=== PATIENT | female | born 1980 | race Caucasian/White ===

== ENCOUNTER → 2017-08-18 13:54 | Outpatient (CLI) | payer BC, SELFPAY ==
--- NOTE | 2017-08-18 13:57 | VDLE_ITS ---
Reason For Study: LEG PAIN - VARICOSE VEINS RIGHT LEFT CFV is compressible, spontaneous, phasic, CFV is compressible, spontaneous, phasic, competent and demonstrates normal competent, and demonstrates normal augmentation. augmentation. FV is compressible, spontaneous, phasic, FV is compressible, spontaneous, phasic, competent and demonstrates normal competent and demonstrates normal augmentation. augmentation. POP V is compressible, spontaneous, phasic, POP V is compressible, spontaneous, phasic, competent and demonstrates normal competent and demonstrates normal augmentation. augmentation. T/P Trunk is compressible. T/P Trunk is compressible. PTV is compressible. PTV is compressible. RT PerV is compressible. LT PerV is compressible. SFJ is INCOMPETENT with reflux greater SFJ is INCOMPETENT with reflux greater than .5 sec than .5 sec GSV is competent above knee GSV is INCOMPETENT with reflux greater GSV is INCOMPETENT below knee with reflux than .5 sec and diameter of .67 x .68 cm greater than .5 sec and diameter of .43 SSV is competent. x .46 cm ASV at SFJ is INCOMPETENT with reflux greater than .5 sec and diameter of .54 x .55 cm SSV is INCOMPETENT with reflux greater than .5 sec and diameter of .25 x .25 cm. Procedure Exam performed in department. Interpretation Summary 1. Bialteral no DVT. 2. Right SFJ to ASV reflux at 5.5mm 3. Right calf GSV reflux 4. Right LSV 2.5mm with relfux 5. Left SFJ to 6.8mm GSV reflux. Ordering Physician: Kg Shah Referring Physician: Kg Shah Performed By: Priti Egan RVT
== END ==
PROVIDERS: Visit Provider Surgery Vascular Surgery
DX: I83.813 Varicose veins of bilateral lower extremities with pain (principal)
CPT/HCPCS: 93970

== ENCOUNTER → 2019-12-29 14:01 | Outpatient (CLI) | payer BC, SELFPAY ==
[2018-05-28 12:07] VITALS: BMI 39.0
[2020-01-04 17:49] LABS: HPV APTIMA, High Risk Negative (Negative); HPV Reflexed? YES, CHARGE PATIENT
== END ==
PROVIDERS: PCP Family Medicine; Visit Provider Student in an Organized Health Care Education/Training Program
DX: Z12.4 Encounter for screening for malignant neoplasm of cervix (principal)
CPT/HCPCS: 87624; 88175; G0145

== ENCOUNTER → 2020-03-18 16:26 | Outpatient (CLI) | payer BC, SELFPAY ==
[2018-05-28 12:07] VITALS: BMI 39.0
== END ==
PROVIDERS: PCP Family Medicine; Visit Provider Family Medicine
DX: Z03.818 Encounter for observation for suspected exposure to other biological agents ruled out (principal)
CPT/HCPCS: 87635; U0003

== ENCOUNTER 2020-10-12 08:32 | Emergency (ER) | payer BC, SELFPAY ==
[2018-05-28 12:07] VITALS: BMI 39.0
[2020-10-12 08:34] VITALS: BP 148/78; PULSE 95; RESP 16; TEMP 36.2; O2SAT 100; BMI 36.4
--- NOTE | 2020-10-12 08:50 | US_ITS ---
STUDY: FIRST TRIMESTER OBSTETRICAL ULTRASOUND REASON FOR EXAM: Female, 40 years old, vaginal bleeding. LMP: 07/26/2020. TECHNIQUE: Transabdominal and Transvaginal TECHNICAL QUALITY: Adequate. PRIOR ULTRASOUND: None. FINDINGS: There is visualization of a single gestational sac in a normal intrauterine position. The mean sac diameter (MSD) measures 4.7 cm, indicating an estimated gestational age (EGA) of 10 weeks, 1 days. The gestational sac shape is within normal limits. There is no demonstrated yolk sac. The placenta appears to be forming anteriorly and completely covering the internal os. There is visualization of a live embryo. The crown-rump length (CRL) measures 4.3 cm, indicating an estimated gestational age (EGA) of 10 weeks, 6 days. There is demonstrated cardiac activity with a heart rate of 162 bpm. The estimated gestation age (EGA) by LMP is 11 weeks, 1 days. The estimated date of delivery (ANEUDY) by LMP is 05/02/2021. The estimated gestation age (EGA) by US is 10 weeks, 6 days. The estimated date of delivery (ANEUDY) by US is 05/04/2021. The uterus measures 18.4 x 7 x 8.9 cm. There is no demonstrated uterine fibroid. The cervix is closed. Both ovaries are not visualized. There is no fluid in the cul de sac. US/Init OB < 14Wks US IMPRESSION: 1. Single live intrauterine fetus with an estimated gestational age of 10 weeks and 6 days. 2. The placenta appears to be forming anteriorly with complete previa. Electronically Signed: David Anthony MD at 10:16 EDT Tel , Service support ,
--- NOTE | 2020-10-12 08:53 | ED.VIS.FEGU ---
HPI HPI - Female History of Present Illness Chief Complaint: Vag Bld, Preg Informant: patient Narrative Narrative: 40-year-old female presenting with vaginal bleeding in . She is 11 weeks . She is G3, P2. She states she had spotting when she was 7 weeks which resolved. She then began having heavier bleeding today with clots. She has lower abdominal cramping. Denies other complaints. PFSH PFSH Medical History Chronic neck and back pain Shortness of breath Home Medications albuterol sulfate 2 puff INHALATION Q4H PRN PRN 10/12/14 [History Last Taken 10/12/14] docusate sodium 100 mg PO BID PRN PRN #60 cap 10/12/14 [Rx Last Taken Unknown] vit,[id number] 1 tab PO DAILY 10/12/14 [History Last Taken 10/12/14] Allergy/AdvReac Type Severity Reaction Status Date / Time azithromycin AdvReac Upset Verified 10/12/20 08:33 Stomach Surgical History History of delivery Social History Smoking Status: Never smoker ROS ROS ED Constitutional Constitutional ED: Denies fever(s) Eyes Eyes: Denies change in vision ENT ENT ED: Denies rhinorrhea or sore throat Cardiovascular Cardiovascular: Denies chest pain or palpitations Respiratory/Chest Respiratory/Chest: Denies cough or dyspnea Gastrointestinal Gastrointestinal: Reports abdominal pain; Denies diarrhea, nausea or vomiting Genitourinary Genitourinary ED: Reports vaginal bleeding; Denies dysuria Musculoskeletal Musculoskeletal: Denies myalgias Integumentary Denies rash Neurologic Neurologic: Denies headache(s) EXAM Physical Exam Const Vital Signs: 10/12/20 08:34 10/12/20 12:04 Temperature 97.2 F L Temperature Source Temporal Pulse Rate 95 94 Respiratory Rate 16 16 Blood Pressure 148/78 H 132/77 H Blood Pressure Mean 101 95 Pulse Ox 100 100 Oxygen Delivery Method Room Air Room Air Positive well nourished and well developed General Appearance ED: well developed HEENT Reports normocephalic and head/scalp atraumatic Eyes PERRL and EOMs intact bilaterally Neck supple General: Negative for tenderness Chest Wall inspection of chest normal Resp normal respiratory effort and clear to auscultation bilaterally Cardio regular rate and regular rhythm GI non-distended Palpation: soft and tender suprapubic; Negative for guarding or rebound tenderness present no CVA tenderness Speculum Exam - Vagina: vaginal bleeding; Negative for tissue present in vagina Speculum Exam - Cervix: cervical os closed Extremity normal to inspection Neuro oriented x3 Sensorium / Orientation: alert Psych mental status grossly normal MDM MDM MDM Narrative Medical decision making narrative: Patient is given morphine, Zofran, IV fluids. On pelvic exam blood is cleared with cotton tip swab. She has no active bleeding once blood is cleared. Blood type is B+. hCG quant 04027. Hemoglobin is 12.8. Pelvic ultrasound shows single live IUP with gestational age 10 weeks [address] Titus. Patient is advised pelvic rest. Advised to follow-up in the office. Advised return to ED for worsening complaints. Lab Data Labs: Laboratory Results - last 24 hr 10/12/20 10/12/20 10/12/20 08:25 09:10 09:10 WBC 9.2 RBC 4.70 Hgb 12.8 Hct 39.2 MCV 83.4 MCH 27.2 MCHC 32.7 RDW Std Deviation 39.8 RDW Coeff of Ryan 12.9 Plt Count 274 MPV 10.1 Immature Gran % (Auto) 0.300 Neut % (Auto) 70.9 H Lymph % (Auto) 20.8 [place] % (Auto) 5.4 Eos % (Auto) 2.2 Baso % (Auto) 0.4 Absolute Neuts (auto) 6.5 Absolute Lymphs (auto) 1.91 Nucleated RBC % 0 HCG, Quant 67656 H Blood Type Cancelled A1 Antigen Typing Cancelled Rho(D) Type Cancelled Radiography Diagnostic Testing: Radiology Impression Obstetrics Ultrasound 10/12/20 08:50 IMPRESSION: 1. Single live intrauterine fetus with an estimated gestational age of 10 weeks and 6 days. 2. The placenta appears to be forming anteriorly with complete previa. Electronically Signed: David Anthony MD at 10:16 EDT Tel , Service support , Discharge Plan Triage Chief Complaint: Vag Bld, Preg ED Provider: Lana Heck Dx/Rx/DC Orders Clinical Impression: Threatened miscarriage Instructions: ED Possible Miscarriage ... Prescriptions: No Action albuterol sulfate 1 INHALER inhaler 2 puff Inhalation Q4H PRN PRN (Reason: Cold Symptons) RF: 0 vit,[id number] 1 TABLET tablet 1 tab PO DAILY RF: 0 docusate sodium 100 MG capsule 100 mg PO BID PRN PRN (Reason: Constipation) Qty: 60 RF: 1 Primary Care Provider: Uzma Gray Referrals: Neena Coley MD [STAFF PHYSICIAN] - Uzma Gray MD [Primary Care Provider] - Disposition Disposition: Home, self care
[2020-10-12 08:58] LABS: Absolute Lymphocyte Count 1.91 X10^3/uL (0.83-4.51); Absolute Neutrophil Count 6.5 X10^3/uL (2.0-7.7); Basophil# 0.04 X10^3/uL; Basophil% 0.4 % (0-1); Eosinophils% 2.2 % (0-5); Hematocrit 39.2 % (37-47); Hemoglobin 12.8 g/dL (12.0-15.0); Lymphocyte # 1.91 X10^3/ul (0.83-4.51); Lymphocyte % 20.8 % (19-41); Mean Corp Hgb Conc 32.7 g/dL (32-36); Mean Corpuscular Hgb 27.2 pg (27.0-32.0); Mean Corpuscular Volume 83.4 fL (81-99); Mean Platelet Vol. 10.1 fl (6.2-12.0); Monocyte% 5.4 % (0-10); NRBC Flagged by Analyzer 0 % (0-5); Neutrophil % 70.9 % (47-70); Platelet Count 274 K/mm3 (150-450); RBC Distribution Width CV 12.9 % (11.6-14.6); RBC Distribution Width SD 39.8 fl (35.1-43.9); White Blood Count 9.2 K/mm3 (4.4-11.0)
[2020-10-12] MEDS: 0.9% Normal Saline 1,000 ML 1000 ML IV (09:08)
[2020-10-12] MEDS: Morphine 4 MG/ML Syringe IV (09:08)
[2020-10-12] MEDS: Ondansetron 4 MG/2 ML Vial IV (09:08)
[2020-10-12 10:24] LABS: hCG Titer Quant., Serum 35231 mIU/mL (1-3)
[2020-10-12 12:04] VITALS: BP 132/77; PULSE 94; RESP 16; O2SAT 100
[2020-10-12 13:03] VITALS: BP 125/67; PULSE 83; RESP 16; O2SAT 100
== END 2020-10-12 13:44 | disposition home or self-care (01) ==
PROVIDERS: Emergency Provider Emergency Medicine; PCP Family Medicine
DX: O20.0 Threatened abortion (principal); Z3A.11 11 weeks gestation of pregnancy
CPT/HCPCS: 76801; 84702; 85025; 86900; 86901; 96361; 96374; 96375; 99285; A4216; J2405

== ENCOUNTER → 2020-11-20 14:45 | Outpatient (CLI) | payer BC, SELFPAY | PROVIDERS: PCP Family Medicine; Visit Provider Student in an Organized Health Care Education/Training Program | DX: R30.0 Dysuria (principal) | CPT/HCPCS: 87086; 87088 ==

== ENCOUNTER 2020-12-18 10:45 | Inpatient (IN) | payer BC, SELFPAY ==
[2020-12-18] VITALS (11 sets, daily range): BP systolic 121–150; BP diastolic 62–92; PULSE 97–133; TEMP 36.1–36.8; O2SAT 98; BMI 35.7
[2020-12-18] MEDS: 0.9% Saline Lock 10 ML Syringe IV (11:10)
--- NOTE | 2020-12-18 11:29 | NURSING ---
Office weight used
[2020-12-18 11:36] LABS: Absolute Lymphocyte Count 1.61 X10^3/uL (0.83-4.51); Absolute Neutrophil Count 11.5 X10^3/uL (2.0-7.7); Basophil# 0.04 X10^3/uL; Basophil% 0.3 % (0-1); Eosinophil# 0.08 X10^3/uL; Eosinophils% 0.6 % (0-5); Hemoglobin 11.6 g/dL (12.0-15.0); Lymphocyte # 1.61 X10^3/ul (0.83-4.51); Lymphocyte % 11.5 % (19-41); Mean Corp Hgb Conc 32.2 g/dL (32-36); Mean Corpuscular Hgb 26.9 pg (27.0-32.0); Mean Corpuscular Volume 83.3 fL (81-99); Mean Platelet Vol. 10.2 fl (6.2-12.0); Monocyte# 0.72 X10^3/uL; Monocyte% 5.2 % (0-10); NRBC Flagged by Analyzer 0 % (0-5); Neutrophil # 11.45 X10^3/uL (2.7-7.7); Neutrophil % 81.9 % (47-70); Platelet Count 253 K/mm3 (150-450); RBC Distribution Width CV 13.9 % (11.6-14.6); RBC Distribution Width SD 42.5 fl (35.1-43.9); Red Blood Count 4.32 M/mm3 (4.2-5.4)
--- NOTE | 2020-12-18 14:49 | HP.PCM.OB_ITS ---
History and Physical Date of Admission: 12/18/20 Chief complaint: Leakage of fluid History of present illness: 40-year-old G3, P2 at 20 weeks and 5 days with ANEUDY 05/02/2021 by LMP arrived to office with leakage of clear/blood tinged fluid starting this morning. Denies headache, visual changes, chest pain, shortness of breath, nausea vomiting, right upper quadrant pain. Obstetric history: G1: 41-week 09/03/2012 female G2: 39-week 10/12/2014 male G3: Current Past medical history: Anxiety, asthma Medications: vitamin, ProAir Past surgical history: x2, wisdom teeth extraction, left leg ablation Allergies: No known drug allergies Social history: Denies smoking, alcohol use, drug use Family history: Denies his DVT or PE Review of systems: Besides above pertinent positives a full review of systems performed found to be negative Physical exam: Vitals: Blood pressure 138/74 pulse 97 General: Tearful, otherwise well-appearing HEENT: Normocephalic atraumatic no cervical of adenopathy Cardiac/respiratory: No use of accessory muscles, nonlabored breathing Abdomen: Soft, nontender, gravid Pelvic exam: Grossly ruptured clear fluid. Positive nitrazine, positive ferning. Cervix 1 cm dilated Extremities: No peripheral edema normal peripheral pulses Psych: Normal affect normal demeanor nonpressured speech Labs: White blood cell count 14, hemoglobin 9.6, hematocrit 36%, platelets 253. Blood type B+ antibody negative Ultrasound in office: heart tones 156, anhydramnios. Head circumference AGA, limited views otherwise with anhydramnios Assessment plan: 40-year-old G3, P2 at 20 weeks and 5 days arrives with previable premature rupture membranes. Educated patient on findings of previable premature rupture of membranes(PPPROM). Educated patient on positive heart tone and risks of delivery, demise, chorioamnionitis. Educated patient on previability and gestational ages considered viable. Discussed with [facility]. Will admit here at [facility] [place] overnight for observation. If no delivery in 24 to 48 hours patient stable will schedule with [facility] on an outpatient setting in the hopes to be scheduled for inpatient management at 22 to 23 weeks gestation. Discussed vaginal delivery and possibility retained products of conception. Patient very tearful, but states understanding, all questions answered.
[2020-12-18] MEDS: Acetaminophen 500 MG Tablet 1000 MG PO ×2 (15:07→21:50)
[2020-12-19] VITALS (26 sets, daily range): BP systolic 118–140; BP diastolic 58–76; PULSE 106–135; TEMP 36.9–37.9; O2SAT 95–98
[2020-12-19] MEDS: Ondansetron 4 MG/2 ML Vial IV ×3 (04:13→18:29)
--- NOTE | 2020-12-19 04:25 | PCM.PN.OB ---
Subjective Subjective Called by RN as unable to obtain FHT. Patient reports feeling generally unwell. Her headache persists. Denies nausea or vomiting. She feels cramping also and had increase in discharge when she was up to the bathroom. Denies fever or chills. Objective Data Objective Data Vital Signs: Vital Signs Temp Pulse BP Pulse Ox 99.2 F H 125 H 140/76 H 97 12/19/20 03:58 12/19/20 04:11 12/19/20 03:55 12/19/20 04:11 Weight: 109.769 kg Body Mass Index (BMI) 35.7 Lab / Micro Data Result Diagrams: 12/18/20 11:10 Labs: Laboratory Results - last 24 hr 12/18/20 11:10: WBC 14.0 H, RBC 4.32, Hgb 11.6 L, Hct 36.0 L, MCV 83.3, MCH 26.9 L, MCHC 32.2, RDW Std Deviation 42.5, RDW Coeff of Ryan 13.9, Plt Count 253, MPV 10.2, Immature Gran % (Auto) 0.500, Neut % (Auto) 81.9 H, Lymph % (Auto) 11.5 L, [place] % (Auto) 5.2, Eos % (Auto) 0.6, Baso % (Auto) 0.3, Absolute Neuts (auto) 11.5 H, Absolute Lymphs (auto) 1.61, Nucleated RBC % 0 12/18/20 11:10: Blood Type B POSITIVE, Antibody Screen NEGATIVE Physical Exam Const alert, oriented x3 and no apparent distress Orientation / Consciousness: awake, oriented to person and oriented to place Resp normal respiratory effort and normal air movement Cardio regular rhythm Rate: tachycardic GI normal to inspection, nondistended, normoactive bowel sounds, soft to palpation and non-distended GI Narrative: mild uterine tenderness NST FHR Rate Baby A Baseline: 160 bpm Variability:: Moderate Assessment & Plan (1) premature rupture of membranes (PPROM) with unknown onset of labor: PLAN: Previable FHR 160 bpm by US Maternal tachycardia present and mild though increasing painfulness and increasing temperature curve without fever Reviewed my concern for infection and/or labor developing with patient Will send CBC with diff Continue to monitor (2) 20 weeks gestation of :
[2020-12-19 04:32] LABS: Absolute Lymphocyte Count 1.06 X10^3/uL (0.83-4.51); Absolute Neutrophil Count 15.4 X10^3/uL (2.0-7.7); Basophil# 0.04 X10^3/uL; Basophil% 0.2 % (0-1); Eosinophil# 0.05 X10^3/uL; Eosinophils% 0.3 % (0-5); Hematocrit 34.2 % (37-47); Lymphocyte # 1.06 X10^3/ul (0.83-4.51); Mean Corp Hgb Conc 32.2 g/dL (32-36); Mean Platelet Vol. 10.1 fl (6.2-12.0); Monocyte# 1.09 X10^3/uL; Monocyte% 6.2 % (0-10); NRBC Flagged by Analyzer 0 % (0-5); Neutrophil # 15.35 X10^3/uL (2.7-7.7); Neutrophil % 86.6 % (47-70); Platelet Count 224 K/mm3 (150-450); RBC Distribution Width SD 43.1 fl (35.1-43.9); Red Blood Count 4.07 M/mm3 (4.2-5.4); White Blood Count 17.7 K/mm3 (4.4-11.0)
[2020-12-19] MEDS: Morphine 4 MG/ML Syringe IV ×4 (04:48→18:19)
--- NOTE | 2020-12-19 08:15 | PCM.PN.OB ---
Subjective Subjective Patient with mild cramping around 2:00 in the morning overnight. Borderline temperatures but no true fever. Patient now feeling some cramping but much improved. Objective Data Objective Data Vital Signs: Vital Signs Temp Pulse BP Pulse Ox 98.4 F 110 H 119/62 96 12/19/20 07:28 12/19/20 07:25 12/19/20 07:25 12/19/20 07:28 Weight: 242 lb Body Mass Index (BMI) 35.7 Lab / Micro Data Result Diagrams: 12/19/20 04:20 Labs: Laboratory Results - last 24 hr 12/18/20 11:10: WBC 14.0 H, RBC 4.32, Hgb 11.6 L, Hct 36.0 L, MCV 83.3, MCH 26.9 L, MCHC 32.2, RDW Std Deviation 42.5, RDW Coeff of Ryan 13.9, Plt Count 253, MPV 10.2, Immature Gran % (Auto) 0.500, Neut % (Auto) 81.9 H, Lymph % (Auto) 11.5 L, [place] % (Auto) 5.2, Eos % (Auto) 0.6, Baso % (Auto) 0.3, Absolute Neuts (auto) 11.5 H, Absolute Lymphs (auto) 1.61, Nucleated RBC % 0 12/18/20 11:10: Blood Type B POSITIVE, Antibody Screen NEGATIVE 12/19/20 04:20: WBC 17.7 H, RBC 4.07 L, Hgb 11.0 L, Hct 34.2 L, MCV 84.0, MCH 27.0, MCHC 32.2, RDW Std Deviation 43.1, RDW Coeff of Ryan 14.0, Plt Count 224, MPV 10.1, Immature Gran % (Auto) 0.700, Neut % (Auto) 86.6 H, Lymph % (Auto) 6.0 L, [place] % (Auto) 6.2, Eos % (Auto) 0.3, Baso % (Auto) 0.2, Absolute Neuts (auto) 15.4 H, Absolute Lymphs (auto) 1.06, Nucleated RBC % 0 Physical Exam Const alert, oriented x3, no apparent distress, average body habitus, healthy appearing and well nourished HEENT normocephalic and moist oral mucous membranes Head and Scalp: atraumatic Neck full ROM Resp normal respiratory effort, no retractions and no use of accessory muscles GI normal to inspection, nondistended, normoactive bowel sounds Extremity normal to inspection, full ROM and no clubbing, cyanosis or edema Psych mental status grossly normal, affect normal, speech normal and activity/motor behavior normal Assessment & Plan (1) 20 weeks gestation of : PLAN: Hospital day 2 with previable premature rupture membranes at 20 weeks. Overnight borderline temperatures, no true fever and no true diagnosis of chorioamnionitis. We will continue to monitor, discussed chorioamnionitis with the patient including its treatment and need for delivery at that time. Discussed delivery medications and process. Patient very appreciative, feels much improved now. Will continue expectant management at this time based on these results.
[2020-12-19] MEDS: 0.9% Saline Lock 10 ML Syringe IV ×5 (10:49→18:19)
--- NOTE | 2020-12-19 21:02 | PN_ITS ---
Progress Note Subjective: Patient with malaise, crampiness that is mild to moderate. Overall states tired of current state but doing well. Anxiety low Physical exam: Vital signs: Blood pressure 133/69 pulse 116 temp 99.7 General: Lethargic HEENT: Normocephalic atraumatic Cardiac/respiratory: Nonlabored breathing, no use of accessory muscles Abdomen: Soft, nontender, obese Pelvic exam: Sterile speculum exam revealed small amount of clearish brown discharge. Cervix 1 cm 90% with sterile gloves. Uterus nontender, cervix nontender. No purulent discharge Extremities: No peripheral edema normal peripheral pulses Psych: Overall normal affect normal demeanor nonpressured speech Assessment plan: Patient seen and examined, overall just feels tired. No major changes throughout the day with cramping that comes and goes some moments worse than others. And mild malaise. Overall exam showed no purulent discharge and a nontender uterus. Cervical exam with moderate effacement changes based on initial office evaluation but no changes in cervical dilation. Educated patient on findings. Patient wishes to proceed with expectant management, discussed co ncerns for infection, along with discussions of babies positive blood rising heart tones. Patient states understanding and wishes for continued expectant management. Will repeat CBC and lactic acid now. Educated patient of possibility of discussion with ethics committee if no major overnight changes, patient interested in this discussion and would like to evaluate that in the morning. Overall comfort care and expectant management, at this time no true temperatures.
[2020-12-19 21:40] LABS: Absolute Lymphocyte Count 1.21 X10^3/uL (0.83-4.51); Absolute Neutrophil Count 16.3 X10^3/uL (2.0-7.7); Basophil# 0.06 X10^3/uL; Basophil% 0.3 % (0-1); Eosinophil# 0.03 X10^3/uL; Eosinophils% 0.2 % (0-5); Hematocrit 32.1 % (37-47); Hemoglobin 10.4 g/dL (12.0-15.0); Lymphocyte # 1.21 X10^3/ul (0.83-4.51); Lymphocyte % 6.3 % (19-41); Mean Corp Hgb Conc 32.4 g/dL (32-36); Mean Corpuscular Hgb 27.1 pg (27.0-32.0); Mean Corpuscular Volume 83.6 fL (81-99); Mean Platelet Vol. 10.1 fl (6.2-12.0); Monocyte# 1.25 X10^3/uL; Monocyte% 6.6 % (0-10); NRBC Flagged by Analyzer 0 % (0-5); Neutrophil # 16.31 X10^3/uL (2.7-7.7); Neutrophil % 85.6 % (47-70); Platelet Count 226 K/mm3 (150-450); RBC Distribution Width CV 14.1 % (11.6-14.6); RBC Distribution Width SD 42.8 fl (35.1-43.9); Red Blood Count 3.84 M/mm3 (4.2-5.4); White Blood Count 19.1 K/mm3 (4.4-11.0)
[2020-12-19 22:04] LABS: Lactic Acid 0.9 mmol/L (0.4-1.9)
[2020-12-19] MEDS: Famotidine 20 MG Tablet 40 MG PO (22:27)
[2020-12-20] VITALS (10 sets, daily range): BP systolic 114–137; BP diastolic 62–75; PULSE 98–116; TEMP 36.6–38.1; O2SAT 97–100
[2020-12-20] MEDS: 0.9% Saline Lock 10 ML Syringe IV ×6 (00:44→17:50)
[2020-12-20] MEDS: Morphine 4 MG/ML Syringe IV ×4 (00:44→16:18)
[2020-12-20] MEDS: Ondansetron 4 MG/2 ML Vial IV ×2 (08:07→17:50)
--- NOTE | 2020-12-20 08:58 | PN.OBGYN_ITS ---
Subjective Subjective Patient feeling much improved Overnight. Decreased malaise. Does have mild cramping. But feels much better than she did yesterday. Objective Data Objective Data Vital Signs: Vital Signs Temp Pulse BP Pulse Ox 98.1 F 103 H 131/75 H 97 12/20/20 06:41 12/20/20 06:41 12/20/20 06:41 12/20/20 06:41 Weight: 242 lb Body Mass Index (BMI) 35.7 Lab / Micro Data Result Diagrams: 12/19/20 20:13 Labs: Laboratory Results - last 24 hr 12/19/20 20:13: WBC 19.1 H, RBC 3.84 L, Hgb 10.4 L, Hct 32.1 L, MCV 83.6, MCH 27.1, MCHC 32.4, RDW Std Deviation 42.8, RDW Coeff of Ryan 14.1, Plt Count 226, MPV 10.1, Immature Gran % (Auto) 1.000 H, Neut % (Auto) 85.6 H, Lymph % (Auto) 6.3 L, [place] % (Auto) 6.6, Eos % (Auto) 0.2, Baso % (Auto) 0.3, Absolute Neuts (auto) 16.3 H, Absolute Lymphs (auto) 1.21, Nucleated RBC % 0 12/19/20 20:13: Lactic Acid 0.9 Physical Exam Const alert, oriented x3, no apparent distress, average body habitus, healthy appearing and well nourished HEENT normocephalic and moist oral mucous membranes Head and Scalp: atraumatic Face and Sinus: normal facial exam Eyes PERRL Neck full ROM Resp normal respiratory effort, no retractions and no use of accessory muscles GI normal to inspection, nondistended, normoactive bowel sounds Extremity normal to inspection, full ROM and no clubbing, cyanosis or edema Psych mental status grossly normal, affect normal, speech normal and activity/motor behavior normal Assessment & Plan (1) 20 weeks gestation of : PLAN: Patient seen and examined. Now 21 weeks gestation. Feeling much improved compared to last evening. Now malaise has resolved. Vital stabilizing. Does have mild to moderate cramping at times. Educated patient on findings still with heart tones and much improved. Discussed case with [facility], supports continued expectant management and for scheduled inpatient admission at 0930 12/27/20 [facility] at 22 weeks to discuss latency antibiotics and [place]. Address for that admit [address] second- floor triage for direct admit. Educated patient on recommendations, performed huddle with nursing management, nursing, pediatrics for plan. Patient at this time does not feel mentally and physically comfortable to discharge home, will continue to monitor expectantly. With plan for discharge to [facility] next week if possible. Patient understands long-term soliloquy of baby including long-term neurologic deficits, survival, long-term NICU stay.
--- NOTE | 2020-12-20 19:00 | PN.OBGYN_ITS ---
Subjective Subjective Reports intermittent cramping and headache off and on. She passed some foul smelling fluid with discharge, but denies yellow or green drainage or drainage looking like pus. She denies fever. She is uncertain if she has chills and reports she is usually hot. Denies vaginal bleeding. She is anxious and trying to take things one hour at a time. Has questions about her , how long she will be here, concerns about discharge, and if she should have antibiotics. She feels her cramping pain is improved with Morphine, which also helps to relax her so she can sleep and not worry as much. Objective Data Objective Data Vital Signs: Vital Signs Temp Pulse BP Pulse Ox 98.7 F 107 H 137/70 H 99 12/20/20 17:52 12/20/20 17:52 12/20/20 17:51 12/20/20 17:52 Weight: 109.769 kg Body Mass Index (BMI) 35.7 Lab / Micro Data Result Diagrams: 12/19/20 20:13 Labs: Laboratory Results - last 24 hr 12/19/20 20:13: WBC 19.1 H, RBC 3.84 L, Hgb 10.4 L, Hct 32.1 L, MCV 83.6, MCH 27.1, MCHC 32.4, RDW Std Deviation 42.8, RDW Coeff of Ryan 14.1, Plt Count 226, MPV 10.1, Immature Gran % (Auto) 1.000 H, Neut % (Auto) 85.6 H, Lymph % (Auto) 6.3 L, [place] % (Auto) 6.6, Eos % (Auto) 0.2, Baso % (Auto) 0.3, Absolute Neuts (auto) 16.3 H, Absolute Lymphs (auto) 1.21, Nucleated RBC % 0 12/19/20 20:13: Lactic Acid 0.9 Physical Exam Const alert, oriented x3 and no apparent distress General Appearance: cooperative and comfortable HEENT normocephalic Resp normal respiratory effort and normal air movement Cardio regular rate, regular rhythm, S1 normal heart sound and S2 normal heart sound GI soft to palpation, non-tender and non-distended Inspection: gravid Narrative: Fundus soft, nontender Extremity normal to inspection Neuro oriented x3 Assessment & Plan (1) premature rupture of membranes (PPROM) with unknown onset of labor: PLAN: No clear evidence of infection and pt remains afebrile despite occasional foul smelling discharge (as per pt, nursing report) and leukocytosis Had long discussion regarding diagnosis, pt risk factors to answer her ques tions. Reviewed indications for antibiotics and limited evidence for use of antibiotics this early in gestation. Pt understands use of antibiotics at this time considered experimental. Discussed antibiotic r/b - following discussion, pt opts to defer antibiotics at this time. Reviewed si/sx infection and discharge criteria. At this time, will continue in patient observation (2) 20 weeks gestation of :
[2020-12-20] MEDS: Famotidine 20 MG Tablet 40 MG PO (22:06)
[2020-12-20] MEDS: Acetaminophen 325 MG Tablet PO (22:06)
[2020-12-20] MEDS: Zolpidem Tartrate 5 MG Tablet PO (22:06)
[2020-12-20] MEDS: Enoxaparin 40 MG/0.4 ML Syringe SC (22:06)
--- NOTE | 2020-12-20 22:33 | MDS.RN ---
Pt talkative, states feels warm, has a headache and overall achyness. Assisted pt with changing underpad while in bed, pt did not wish to get up to the BR at this time. Scant amount of light rubra, brown foul smelling discharge noted on pad.
--- NOTE | 2020-12-20 22:48 | NURSING ---
notified of elevated temp of 100.6. States will be over to assess pt.
--- NOTE | 2020-12-20 23:22 | PCM.PN.OB ---
Subjective Subjective Pt reports fever. Thinks she may have had one earlier today followed by sweating and broke. She reports occasional cramping. Continues with brown tinged vaginal discharge with odor. Objective Data Objective Data Vital Signs: Vital Signs Temp Pulse BP Pulse Ox 100.6 F H 104 H 123/67 H 97 12/20/20 22:01 12/20/20 22:11 12/20/20 22:01 12/20/20 22:11 Weight: 109.769 kg Body Mass Index (BMI) 35.7 Lab / Micro Data Result Diagrams: 12/20/20 23:15 Physical Exam Const alert and oriented x3 Cardio regular rhythm Cardio Narrative: tachycardia - 110 bpm Narrative: Fundus soft, nontender NST FHR Rate Baby A Baseline: positive Assessment & Plan (1) Maternal pyrexia, antepartum: PLAN: Straight cath U/A CBC with diff, lactate Repeat temperature, trend curve Reviewed with patient need to r/o infection. Dfdx UTI, possible chorioamnionitis. Patient with questions regarding management if infection and questions answered to her satisfaction regarding induction indications, medications and timeline. Reviewed induction related risks including, but not limited to bleeding, hemorrhage, infection, sepsis, VTE, need for further surgery. (2) 21 weeks gestation of : (3) premature rupture of membranes (PPROM) with unknown onset of labor:
[2020-12-20 23:46] LABS: Absolute Lymphocyte Count 1.02 X10^3/uL (0.83-4.51); Absolute Neutrophil Count 14.6 X10^3/uL (2.0-7.7); Basophil# 0.05 X10^3/uL; Basophil% 0.3 % (0-1); Eosinophil# 0.07 X10^3/uL; Eosinophils% 0.4 % (0-5); Hematocrit 32.7 % (37-47); Hemoglobin 10.4 g/dL (12.0-15.0); Lymphocyte # 1.02 X10^3/ul (0.83-4.51); Lymphocyte % 5.8 % (19-41); Mean Corp Hgb Conc 31.8 g/dL (32-36); Mean Corpuscular Hgb 26.9 pg (27.0-32.0); Mean Corpuscular Volume 84.7 fL (81-99); Mean Platelet Vol. 10.3 fl (6.2-12.0); Monocyte# 1.39 X10^3/uL; Monocyte% 7.9 % (0-10); NRBC Flagged by Analyzer 0 % (0-5); Neutrophil # 14.64 X10^3/uL (2.7-7.7); Neutrophil % 83.4 % (47-70); Platelet Count 231 K/mm3 (150-450); RBC Distribution Width CV 13.9 % (11.6-14.6); Red Blood Count 3.86 M/mm3 (4.2-5.4); White Blood Count 17.6 K/mm3 (4.4-11.0)
[2020-12-20 23:58] LABS: Lactic Acid 0.8 mmol/L (0.4-1.9)
[2020-12-21] VITALS (53 sets, daily range): BP systolic 112–133; BP diastolic 55–95; PULSE 86–127; TEMP 36.4–38.1; O2SAT 82–100
[2020-12-21 00:02] LABS: Mucous, Urine 0 SEEN /hpf (<or=2+)
[2020-12-21 00:23] LABS: Color, Urine Yellow (Yellow); Glucose, Dipstick Normal (Normal); Leukocyte Esterase-Dipstick Negative /ul (Negative); Nitrite-Dipstick Negative (Negative); Occult Blood-Urine 150 /ul (Negative); Protein-Dipstick 30 mg/dl (Negative); Specific Gravity, Urine 1.015 (1.002-1.030); Urine Bilirubin Dipstick Negative (Negative); Urine Clarity Clear (Clear); Urine Urobilinogen 1 mg/dl (Normal)
[2020-12-21 00:27] LABS: Ketone-Dipstick 150 mg/dl (Negative)
[2020-12-21 00:39] LABS: Bacteria RARE /hpf (None Seen); Squamous Epithelial Cells - UA 0-5 SEEN /hpf (5-10)
[2020-12-21 00:40] LABS: Amorphous Sediment RARE; Red Blood Cells-Urine 0-5 SEEN /hpf (0-5); White Blood Cells 0-5 SEEN /hpf (0-5)
[2020-12-21] MEDS: 0.9% Saline Lock 10 ML Syringe IV ×2 (06:33→11:58)
[2020-12-21] MEDS: Acetaminophen 325 MG Tablet PO (06:51)
--- NOTE | 2020-12-21 07:53 | PN.OBGYN_ITS ---
Subjective Subjective Feels better since she is no longer using the Morphine. She reports intermittent crampiness persists and has odor to her discharge. Denies pus like discharge, yellow or green discoloration. She continues with brown tinged mucus. Denies fever, chills, nausea, vomiting. Objective Data Objective Data Vital Signs: Vital Signs Temp Pulse BP Pulse Ox 97.9 F 95 115/59 L 100 12/21/20 06:12 12/21/20 06:13 12/21/20 06:12 12/21/20 06:13 Weight: 109.769 kg Body Mass Index (BMI) 35.7 Lab / Micro Data Result Diagrams: 12/20/20 23:15 Labs: Laboratory Results - last 24 hr 12/20/20 23:15: WBC 17.6 H, RBC 3.86 L, Hgb 10.4 L, Hct 32.7 L, MCV 84.7, MCH 26.9 L, MCHC 31.8 L, RDW Std Deviation 43.0, RDW Coeff of Ryan 13.9, Plt Count 231, MPV 10.3, Immature Gran % (Auto) 2.200 H, Neut % (Auto) 83.4 H, Lymph % (Auto) 5.8 L, [place] % (Auto) 7.9, Eos % (Auto) 0.4, Baso % (Auto) 0.3, Absolute Neuts (auto) 14.6 H, Absolute Lymphs (auto) 1.02, Nucleated RBC % 0 12/20/20 23:15: Lactic Acid 0.8 12/20/20 23:55: Urine Color Yellow, Urine Clarity Clear, Urine pH 6.0, Ur Specific [place] 1.015, Urine Protein 30 H, Urine Glucose (UA) Normal, Urine Ketones 150 A*, Urine Occult Blood 150 H, Urine Nitrite Negative, Urine Bilir ubin Negative, Urine Urobilinogen 1 H, Ur Leukocyte Esterase Negative, Urine RBC 0-5 SEEN, Urine WBC 0-5 SEEN, Ur Squamous Epith Cells 0-5 SEEN, Amorphous Sediment RARE, Urine Bacteria RARE, Urine Mucus 0 SEEN Physical Exam Const alert, oriented x3 and no apparent distress HEENT normocephalic Resp normal respiratory effort, normal air movement and clear to auscultation bilaterally Cardio regular rate and regular rhythm GI normal to inspection, nondistended, normoactive bowel sounds, soft to palpation, non-tender and non-distended Inspection: gravid Narrative: Fundus soft and nontender Assessment & Plan (1) 21 weeks gestation of : (2) premature rupture of membranes (PPROM) with unknown onset of labor: PLAN: No repeat fever overnight Clinically, no evidence of infection apart from discharge at this time WBC and lactate remain stable highly desired Will continue to observe
[2020-12-21] MEDS: miSOPROStol 200 MCG Tablet 400 MCG VAGINAL ×3 (11:44→20:31)
--- NOTE | 2020-12-21 11:57 | PN_ITS ---
Progress Note Called by RN at 1020h this morning reporting inability to find FHTs. I arrived to bedside and US performed demonstrating [place] IUP, no cardiac activity on 4 chamber view with color flow. Informed patient of , emotional support offered. Patient reported continued intermittent cramping and non purulent discharge with odor. Denies fever, chills or worsening pain. Discussed IOL again including risks including, but not limited to pain, bleeding, hemorrhage, infection, VTE, uterine rupture, retained placenta, need for additional surgery, possibly including D&C or hysterectomy. Also discussed D&E as alternative with review of associated benefits, risks, and need for transfer of care to [place] to facilitate this at this gestational age. Following discussion, pt opts for IOL. Plan misoprostol induction, pain management prn. IV antibiotics for likely subclinical infection. AVSS, Fundus soft, nontender, Misoprostol 400mcg placed per vagina, cervix 0/0/- 5. Assessment & Plan Assessment/Plan (1) demise before 22 weeks with retention of fetus: PLAN: hx 2 prior C/S Misoprostol protocol Abx for subclinical chorioamnionitis (2) 21 weeks gestation of : (3) premature rupture of membranes (PPROM) with unknown onset of labor:
[2020-12-21] MEDS: Lactated Ringers 1,000 ML 50 ML IV (12:30)
[2020-12-21] MEDS: Acetaminophen 500 MG Tablet PO (12:30)
[2020-12-21] MEDS: Ondansetron 4 MG/2 ML Vial IV ×2 (12:31→17:11)
[2020-12-21] MEDS: Docusate Sodium 100 MG Capsule PO (12:35)
[2020-12-21] MEDS: Ketorolac 30 MG/ML Syringe IV (12:45)
[2020-12-21] MEDS: Lactated Ringers 500 ML 999 ML IV (14:02)
[2020-12-21] MEDS: fentaNYL-bupivacaine (epidural) 100 ML BAG EPIDURAL ×2 (15:51→20:28)
[2020-12-21] MEDS: LORazepam 2 MG/ML Syringe 0.5 MG IV (16:27)
--- NOTE | 2020-12-21 19:42 | PCM.PN.OB ---
Subjective Subjective Kirstie denies painfulness. She is comfortable with epidural. Denies fever, chills. She has a dull headache, similar to what she had when she was admitted. No complaints. Reports she is doing as well as she can emotionally. Objective Data Objective Data Vital Signs: Vital Signs Temp Pulse BP Pulse Ox 98.0 F 108 H 122/59 H 100 12/21/20 18:37 12/21/20 19:40 12/21/20 19:40 12/21/20 19:37 Weight: 109.769 kg Body Mass Index (BMI) 35.7 Intake & Output: Intake and Output for Last 24 Hours 12/19/20 12/20/20 12/21/20 23:59 23:59 23:59 Intake Total 1639.09 / 1639.09 Balance 1639.09 / 1639.09 Lab / Micro Data Result Diagrams: 12/20/20 23:15 Labs: Laboratory Results - last 24 hr 12/20/20 23:15: WBC 17.6 H, RBC 3.86 L, Hgb 10.4 L, Hct 32.7 L, MCV 84.7, MCH 26.9 L, MCHC 31.8 L, RDW Std Deviation 43.0, RDW Coeff of Ryan 13.9, Plt Count 231, MPV 10.3, Immature Gran % (Auto) 2.200 H, Neut % (Auto) 83.4 H, Lymph % (Auto) 5.8 L, [place] % (Auto) 7.9, Eos % (Auto) 0.4, Baso % (Auto) 0.3, Absolute Neuts (auto) 14.6 H, Absolute Lymphs (auto) 1.02, Nucleated RBC % 0 12/20/20 23:15: Lactic Acid 0.8 12/20/20 23:55: Urine Color Yellow, Urine Clarity Clear, Urine pH 6.0, Ur Specific [place] 1.015, Urine Protein 30 H, Urine Glucose (UA) Normal, Urine Ketones 150 A*, Urine Occult Blood 150 H, Urine Nitrite Negative, Urine Bilirubin Negative, Urine Urobilinogen 1 H, Ur Leukocyte Esterase Negative, Urine RBC 0-5 SEEN, Urine WBC 0-5 SEEN, Ur Squamous Epith Cells 0-5 SEEN, Amorphous Sediment RARE, Urine Bacteria RARE, Urine Mucus 0 SEEN 07/31/21 12:25: Blood Type B POSITIVE, Antibody Screen NEGATIVE Physical Exam Const alert, oriented x3 and no apparent distress General Appearance: cooperative and comfortable Narrative: /0 per RN exam at approximately 1830h, fundus nontender NST FHR Rate Baby A Uterine Activity:: 010 Assessment & Plan (1) 21 weeks gestation of : (2) demise before 22 weeks with retention of fetus: PLAN: Will continue misoprostol IOL Pt afebrile with no signs of infection now Will continue antibiotics until delivery (3) premature rupture of membranes (PPROM) with unknown onset of labor:
[2020-12-21] MEDS: Lactated Ringers 1,000 ML 200 ML IV (20:28)
--- NOTE | 2020-12-21 20:38 | CASEMGMT ---
SW Note Referral Source: [facility] SW Referral Reason: Labor SW spoke to fourdrinier machine operator Lima and she said that there is no heartbeat for fetus this morning and patient will be induced. SW spoke to Lima in the am. SW called fourdrinier machine operator, Lima, and she said that patient had an epidural and is appropriately mad about the situation and voiced why this is occurring. SW will continue to follow. Plan: CORRINA will continue to follow Damari OG
--- NOTE | 2020-12-21 21:40 | CM.ED ---
CORRINA Note CORRINA called Christen at . SHe said that patient continues to be in the early stage of labor. Christen said that patient's RN stated that patient is handling the situation well and appears to be glad she is deliver is delivering early in the as opposed to finding out later in the and then delivering. Christen said that it appears that it is almost therapy that the fetus is passing at this time instead of later. CORRINA asked Christen to update the chart and ensure that staff has the accurate phone number for patient and Christen indicated that staff would ensure that her current phone contact is updated. CORRINA updated [facility] CORRINA [place]. Plan: If patient stays till Wednesday SW will see her then. If patient is discharged on Wednesday then patient will be contacted by criminal justice social workerSadie for follow up. Staff will confirm patient's phone number. Plan: Home at discharge Damari OG
[2020-12-21] MEDS: Famotidine 20 MG Tablet 40 MG PO (22:38)
[2020-12-22] VITALS (175 sets, daily range): BP systolic 96–137; BP diastolic 53–95; PULSE 93–145; TEMP 36.2–38.1; O2SAT 80–100
[2020-12-22] MEDS: miSOPROStol 200 MCG Tablet 400 MCG VAGINAL ×2 (00:28→04:35)
[2020-12-22] MEDS: Ondansetron 4 MG/2 ML Vial IV ×4 (00:55→23:29)
[2020-12-22] MEDS: Lactated Ringers 1,000 ML 200 ML IV ×4 (00:55→19:27)
[2020-12-22] MEDS: Acetaminophen 500 MG Tablet PO (00:55)
[2020-12-22] MEDS: 0.9% Saline Lock 10 ML Syringe IV ×3 (01:02→23:29)
[2020-12-22] MEDS: fentaNYL-bupivacaine (epidural) 100 ML BAG EPIDURAL ×6 (01:12→23:25)
[2020-12-22] MEDS: Ketorolac 30 MG/ML Syringe IV ×2 (07:34→15:41)
[2020-12-22] MEDS: LORazepam 2 MG/ML Syringe 0.5 MG IV (07:51)
--- NOTE | 2020-12-22 08:11 | PN.OBGYN_ITS ---
Subjective Subjective Reports she is emotionally done and having painfulness with contractions not alleviated by epidural. Epidural was recently redosed with mild improvement of pain. She is concerned that she will not be able to tolerate the pain of further labor. She wants to know her options. Objective Data Objective Data Vital Signs: Vital Signs Temp Pulse BP Pulse Ox 98.5 F 124 H 137/68 H 97 12/22/20 05:48 12/22/20 07:16 12/22/20 07:12 12/22/20 07:16 Weight: 109.769 kg Body Mass Index (BMI) 35.7 Intake & Output: Intake and Output for Last 24 Hours 12/20/20 12/21/20 12/22/20 23:59 23:59 23:59 Intake Total 1758.25 / 1758.25 3290 / 3290 Output Total 1100 / 1100 Balance 1758.25 / 1758.25 2190 / 2190 Lab / Micro Data Result Diagrams: 12/20/20 23:15 Labs: Laboratory Results - last 24 hr 12/21/20 12:25: Blood Type B POSITIVE, Antibody Screen NEGATIVE Physical Exam Const alert, oriented x3 and no apparent distress Resp normal respiratory effort and normal air movement Cardio regular rhythm Rate: tachycardic GI GI Narrative: soft, nontender, nondistended Narrative: Fundus soft, nontender, remains at umbilicus Assessment & Plan (1) demise before 22 weeks with retention of fetus: PLAN: IOL started < 24h prior for IUFD with associated PPROM Vitals are stable with low grade temperature, likely cytotec related. I recommended patient proceed with pitocin at this time. Offered transfer of care with D&E as alternative. Patient requests section as she is just ready to be done. I advised against section at this time - reviewed related risks further including but not limited to pain, bleeding, infection, VTE, scarring, hemorrhage, need for additional surgery, possible hysterectomy, elenita centa accreta spectrum d/o and sequelae, need for early delivery in future with associated risk for respiratory, feeding complications and prolonged hospitalization. Patient and report they have been here for several days and patient feels she is not emotionally able to tolerate labor course further and does not want to be in labor for days. Patient adamant she desires section today. Will consult anesthesiology further to offer other pain management plan to continue in labor, otherwise will proceed with section. (2) 21 weeks gestation of : (3) premature rupture of membranes (PPROM) with unknown onset of labor:
[2020-12-22] MEDS: 0.9% Normal Saline Single 100 ML IV.SOLN. INTRA-UTER (09:25)
[2020-12-22] MEDS: Oxytocin 30 units/NS 500 ml 30 UNITS/500 ML IV.SOLN IV (09:36)
[2020-12-22] MEDS: proCHLORPERazine 10 MG/2 ML Vial IV (10:16)
[2020-12-22] MEDS: Propranolol 1 MG/ML Ampul IV (15:28)
[2020-12-22] MEDS: Lactated Ringers 500 ML 999 ML IV (15:43)
--- NOTE | 2020-12-22 17:40 | PCM.PN.BLA ---
Progress Note Pain improved with recent Demerol. Report relief of pressure since madera bulb came out. Physical Exam Const alert, oriented x3 and no apparent distress Resp normal respiratory effort and normal air movement Cardio regular rate GI soft to palpation, non-tender and non-distended Narrative: fundus soft, nontender SVE 5/75/0, parts palpable malodorous blood tinged amnionic fluid Assessment & Plan Assessment/Plan (1) demise before 22 weeks with retention of fetus: PLAN: Continued antibiotics [place] bulb out Await further descent Continue pitocin (2) 21 weeks gestation of : (3) premature rupture of membranes (PPROM) with unknown onset of labor:
--- NOTE | 2020-12-22 18:54 | NURSING ---
1800- Per Dr Twyla das to increase pitocin to 30
[2020-12-22] MEDS: Famotidine 20 MG Tablet 40 MG PO (23:25)
[2020-12-23] VITALS (38 sets, daily range): BP systolic 95–126; BP diastolic 51–96; PULSE 80–131; RESP 16–35; TEMP 36.4–37.8; O2SAT 82–100
--- NOTE | 2020-12-23 | PLAC_PTH ---
PATIENT: SHAAN JACQUES LOC: [facility] U#:[id number] AGE/SX: 40/F ROOM: WP008 RE12/19/[address]: Dr. Thomas Anders MD : 1980 BED: 1 DIS: 12/26/2020 SPEC #: [id number] RECD: 12/23/20 13:46 STATUS: LORI REQ #: [id number] YOLY: 12/23/20 00:[address]: Thomas Anders DEPT: SURGICAL PATHOLOGY RECD BY: José Frances ENTERED: 12/24/20 08:06 SP TYPE: PLACENTA OTHR DR: MD Dr. Ji Frazier DO Dr. Hannah Miedel, MD Christina Muller, CAFE SERVER-C Tissues: Placenta, NOS Procedures: Surgery Specimen Level V HEADER OPERATION: Hysterostomatomy PRE-OP DIAGNOSIS: demise before 22 weeks with retention of fetus TISSUE SUBMITTED: Placenta MICROSCOPIC DIAGNOSIS Lopez placenta at 21 week gestation (73 gm): Umbilical cord ? trivascular with acute funisitis. Placental membranes ? acute chorioamnionitis. Placental disc ? immature placenta with marked acute deciduitis. See comment. AM:johanna 12/25/2020 MICROSCOPIC DESCRIPTION Slides are reviewed. GROSS DESCRIPTION Received in fixative is one container labeled with the patient's name and designated placenta. The specimen consists of a macerated placenta with attached umbilical cord and possible membranes. Also present in the specimen contains are multiple irregular fragments of dark honeycutt blood clots measuring in aggregate 22 x 15 x 3 cm. parts are not grossly recognized. The umbilical cord measures 11 x 1 cm. The placental disc measures 12 x 7 x 1.6 cm and weighs 73 gm. No mass lesions are noted in the placenta. Knockdown Worker sections are submitted in six cassettes as follows: 1 - umbilical cord, 2??membrane, 3-6 - placental disc. / AM:johanna 12/24/20 TC:2 CPT: 23813
[2020-12-23] MEDS: Lactated Ringers 1,000 ML 200 ML IV ×2 (00:54→06:16)
[2020-12-23] MEDS: Acetaminophen 500 MG Tablet PO (01:12)
[2020-12-23] MEDS: miSOPROStol 200 MCG Tablet VAGINAL (03:06)
[2020-12-23] MEDS: miSOPROStol 200 MCG Tablet PO (03:08)
[2020-12-23] MEDS: Ondansetron 4 MG/2 ML Vial IV ×4 (03:19→20:26)
[2020-12-23] MEDS: 0.9% Saline Lock 10 ML Syringe IV ×5 (03:20→21:09)
--- NOTE | 2020-12-23 05:35 | PCM.PN.OB ---
Subjective Subjective Doing well, has painfulness with contractions. Otherwise, denies significant pain in between them. Reports fever this morning to 100.0. No nausea or vomiting. Objective Data Objective Data Vital Signs: Vital Signs Temp Pulse BP Pulse Ox 97.8 F 109 H 123/57 H 82 12/23/20 04:09 12/23/20 04:09 12/23/20 04:09 12/23/20 04:09 Weight: 109.769 kg Body Mass Index (BMI) 35.7 Intake & Output: Intake and Output for Last 24 Hours 12/21/20 12/22/20 12/23/20 23:59 23:59 23:59 Intake Total 1758.25 / 1758.25 6906.98 / 6906.98 2406.83 / 2406.83 Output Total 2600 / 2600 1100 / 1100 Balance 1758.25 / 1758.25 4306.98 / 4306.98 1306.83 / 1306.83 Lab / Micro Data Result Diagrams: 12/20/20 23:15 Micro: Microbiology 12/21/20 00:00 Urine, Catheterized Urine Culture - Preliminary Streptococcus agalactiae (B) Physical Exam Const alert, oriented x3 and no apparent distress Resp normal respiratory effort and normal air movement Cardio regular rate and regular rhythm GI GI Narrative: soft, nontender, nondistended Narrative: SVE cervix stretches to 6cm with parts palpable within the cervix Dark blood tinged, malodorous fluid TOCO - unable to trace contractions Assessment & Plan (1) demise before 22 weeks with retention of fetus: PLAN: s/p misoprostol, madera bulb and pitocin Pt given additional dose 400mcg total misoprostol and pushing again Concern for cervical dystocia Will continue pushing until 6a and if no further descent proceed with hysterostomatomy transvaginally. Reviewed with patient and how performed and surgical risks including but not limited to bleeding, hemorrhage, infection, need for further surgery, possibly including laparotomy or hysterectomy. Patient and asked questions and questions answered to their satisfaction. (2) 21 weeks gestation of : (3) premature rupture of membranes (PPROM) with unknown onset of labor: (4) Chorioamnionitis: PLAN: Continue Gentamicin, Ampicillin Will at Clindamycin if need to proceed with surgical uterine evacuation.
[2020-12-23] MEDS: Lidocaine 1% /Epi 1:100 (20ml) 20 ML Vial (07:50)
[2020-12-23] MEDS: Hetastarch 6% /Ns 30 GM/500 ML BAG IV ×2 (08:01→08:34)
--- NOTE | 2020-12-23 09:00 | OP.PCM_ITS ---
Problems Associated Problem List Diagnoses (1) hemorrhage: (2) Chorioamnionitis: (3) demise before 22 weeks with retention of fetus: (4) 21 weeks gestation of : (5) premature rupture of membranes (PPROM) with unknown onset of labor: Report of Operation Date of Procedure: 12/23/20 Pre-Operative Diagnosis: 1. 21 weeks gestation 2. Previable prelabor premature rupture of membranes 3. Intrauterine demise 4. Chorioamnionitis 5. Failed induction Post-Operative Diagnosis: 1. 21 weeks gestation 2. Previable prelabor premature rupture of membranes 3. Intrauterine demise 4. Chorioamnionitis 5. Failed induction 6. hemorrhage Surgery/Procedure Performed:: 1. Hysterostomatomy 2. Extraction of fetus 3. Manual placenta removal 4. Suction dilation and curettage 5. Bakri balloon placement 6. Perioperative ultrasound Description of Surgical Findings:: 21-week size infant . Surgeon: Nicolette Candelaria tyre finisher and examiner: Tyler Patel tyre finisher and examiner: Hyacinth Diaz Type of Anesthesia: General and Local Anesthesiologist: Juan Andujar Specimen's removed: placenta and products of conception Drains: Hartmann 50cc Estimated Blood Loss (mL): 4000 Fluids Replaced: 2000 ml crystalloid, 1000 ml Hespan, 2 u prbc Description of Procedure: Indications: 40-year-old 3 para 2-0-0-2 at 21 weeks gestational age with PPROM. She was admitted for observation at 20 5/7 weeks gestation however at 21 1/7 weeks gestation heart tones were not observed and ultrasound confirmed intrauterine demise. The patient underwent induction of labor and was started on antibiotics for presumed chorioamnionitis. She progressed to 5 cm dilation however there was cervical dystocia that was unable to be overcome with maternal expulsive efforts. I advised her to proceed with vaginal section via hysterostomatomy. Reviewed with patient procedural risks, benefits, indications and alternatives. Informed consent was obtained prior to the procedure and patient desired to proceed. Procedure: Patient was brought to the operating room and signed and performed. She is placed in the dorsal supine position and induced under general anesthesia and intubated. She was then repositioned in dorsolithotomy. Her Hartmann catheter was removed. The perineum and lower abdomen were prepped and draped in sterile fashion. A sterile Hartmann catheter was placed and secured. A weighted speculum was placed vaginally and the cervix grasped distally using Allis clamps. A paracervical block was placed for total of 8 cc of 1% lidocaine with epinephrine. The cervix was incised at the midline using Ramirez scissors from the external os proximally. The cervicovaginal fascia was identified and dissected to develop the vesicovaginal space. A curved [place] was placed to retract the bladder anteriorly. The midline cervical incision was extended into the lower uterine segment. There was significant descent of the presenting part. The fetus was gently retrieved using fundal pressure. The cord was doubly clamped and cut. The was passed to awaiting obstetric personnel. The placenta was manually extracted from the uterus. There was profuse uterine hemorrhage that occurred immediately after placenta extraction. Banjo curettage was performed and followed by intrauterine suction curettage using 16 [place] curved curette. There was some reduction in the briskness of bleeding, bleeding continued. A Bakri reballoon was placed with 260 cc of normal saline with hemostasis attained. Transabdominal ultrasound was performed with limited visualization. I subsequently performed transvaginal ultrasound confirming no evidence of uterine perforation as there was no fluid in the posterior cul-de-sac; it appeared the fundus was contracted on US consistent with improved fundal tone on exam. The apex of the hysterostomatomy was identified and 0 Vicryl running suture was placed here to reapproximate the lower uterine segment. The same stitch was used to reapproximate the midline cervical incision. I observed bleeding at the perineum for several minutes. With continued hemostasis the procedure was complete. The patient was placed into the dorsal supine position, awakened, extubated. She will be transferred to the ICU for further care. Sponge counts were correct x2. Complications hemorrhage 2 units of packed RBC administered, patient also received IM Methergine, IM Hemabate, Pitocin and tranexamic acid. Admit VTE Documentation VTE Present on Admission: No VTE Mechan Device Prophylaxis: SCD's VTE Pharm Prophylaxis ordered?: No Reason prophylaxis not ordered:: Medical Contraindication (indwelling epidural catheter)
[2020-12-23] MEDS: Lactated Ringers 1,000 ML 100 ML IV ×3 (09:47→22:41)
--- NOTE | 2020-12-23 09:50 | NURSING ---
At 0750 vaginal delivery of stillborn male. Weight 311 gm, 10.5 inches long
[2020-12-23 10:02] LABS: Hematocrit 23.2 % (37-47); Hemoglobin 7.5 g/dL (12.0-15.0); Mean Corp Hgb Conc 32.3 g/dL (32-36); Mean Corpuscular Hgb 28.5 pg (27.0-32.0); Mean Corpuscular Volume 88.2 fL (81-99); Mean Platelet Vol. 9.5 fl (6.2-12.0); Platelet Count 191 K/mm3 (150-450); RBC Distribution Width CV 14.2 % (11.6-14.6); RBC Distribution Width SD 45.6 fl (35.1-43.9); Red Blood Count 2.63 M/mm3 (4.2-5.4); White Blood Count 11.2 K/mm3 (4.4-11.0)
--- NOTE | 2020-12-23 10:20 | NURSING ---
VS per ICU staff and documented per them
--- NOTE | 2020-12-23 10:22 | NURSING ---
VS cont. to be per ICU staff and documented per them. Pt. sleepy but awake and talking with at bedside. Taking sips/chips.
[2020-12-23 10:28] LABS: Anion Gap 9 (5-15); BUN 6 mg/dL (7-18); BUN/Creat Ratio 9.7 RATIO (10-20); Chloride 111 mmol/L (98-107); Creatinine, Serum 0.62 mg/dL (0.55-1.02); Glucose 106 mg/dL (74-106); Potassium 3.6 mmol/L (3.5-5.1); Sodium Level 141 mmol/L (136-145)
--- NOTE | 2020-12-23 10:45 | NURSING ---
Bakri balloon patent and draining light red drainage. 150 ml in bag.
--- NOTE | 2020-12-23 10:54 | NURSING ---
See OR record for missing abernathy
--- NOTE | 2020-12-23 11:27 | NURSING ---
I&O, Bakri discharge measured and recorded per ICU nurse. Bakri intact and draining. Small red drainage in bag.
[2020-12-23 11:32] LABS: International Normalized Ratio 1.4; Prothrombin Time (Protime)PT. 16.5 SECONDS (11.7-14.9)
[2020-12-23 11:33] LABS: Partial Thromboplast Time 32.9 Seconds (24.1-36.2)
[2020-12-23] MEDS: HYDROmorphone 1 MG/ML Syringe IV (11:49)
--- NOTE | 2020-12-23 12:18 | EX.PCM.CONCC ---
Assessment & Plan Assessment/Plan (1) hemorrhage: (2) demise before 22 weeks with retention of fetus: (3) Hemorrhagic shock: PLAN: RECOMMENDATIONS: 1. Continue serial H&H every 6 2. Transfuse to keep hemoglobin greater than 8 until clinical cessation of bleeding 3. Okay to take p.o. sips and chips if okay with OB 4. Wean oxygen as tolerated 5. Continue albuterol as needed. No steroids at this time IMPRESSIONS: 1. Hemorrhagic shock secondary to acute blood loss anemia secondary to postoperative bleeding Patient with significant bleeding noted by anesthesia. Patient reportedly had 4 L of estimated blood loss, but appears to have been hemodynamically stabilized with just 2 units of packed red blood cells for now. However, patient would be at risk for DIC or consumptive coagulopathy. Patient does have some clinical bleeding, so will attempt to keep hemoglobin greater than 8. No indication for pressors at this time. Patient did receive medical therapy by OB postoperatively to help with bleeding. 2. Chorioamnionitis secondary to premature rupture of membranes Patient is currently on antibiotics. Leukocytosis appears to be somewhat improved, but this may be delusional. Patient does have a slightly elevated INR, but does not appear to be in DIC at this time. UA is not suggestive of UTI. We will continue to monitor. No indication for central line at this time. If patient stabilizes in the next 24 hours, possibly okay [facility] We will continue to monitor. HPI Consult Data Date of Consult: 12/23/20 HPI Narrative HPI Narrative: SHAAN JACQUES is a 40 F, with past medical history listed below, who presented to [facility] on 12/18/2020 secondary to leakage of fluid. Patient reportedly was a G3, P2 female at 20 weeks and 5 days with an estimated due date of 05/02/2021 by LMP that had started to have leakage of clear blood-tinged fluid. Patient denied constitutional symptoms such as headache, visual change, nausea, vomiting or shortness of breath. On initial assessment, patient was normotensive and tearful. Patient was noted to have a cervix of 1 cm. Ultrasound the office had reportedly shown anhydramnios. Patient was admitted to the hospital for further evaluation. This morning, patient reportedly started to develop contractions and fevers. No nausea or vomiting was noted. Patient was being treated for demise before 22 weeks with retention of fetus. Despite medical intervention, patient had cessation of labor and required a hysterotomy transvaginally. During the procedure, there was significant blood loss and I was called by anesthesia to evaluate the patient for ICU admission. Patient reportedly had 4 L of blood loss and there was a code [employer] and code [employer] called. Patient reportedly received 2 units of packed red blood cells in the OR and has 3 more waiting. On evaluation in the intensive care unit, patient was pale and reporting significant pelvic pain. Patient was not reporting any respiratory or neurologic symptoms. Patient denied any chest pain. Patient's blood pressure was okay, but the patient was tachycardic. Repeat blood count showed another drop in hemoglobin to 7.5. Patient was subsequently ordered an additional unit of packed red blood cells. Patient is not available to give a full review of systems secondary to her acute status. Patient does carry a diagnosis of asthma, but appears to only be on albuterol as needed at baseline. [facility] Medical History 20 weeks gestation of Anxiety Asthma Chronic neck and back pain HPV (human papilloma virus) infection depression Shortness of breath Superficial varicosities Home Medications albuterol sulfate 2 puff INHALATION Q4H PRN PRN 10/12/14 [History Last Taken 10/12/14] docusate sodium 100 mg PO BID PRN PRN #60 cap 10/12/14 [Rx Last Taken Unknown] vit,[id number] 1 tab PO DAILY 10/12/14 [History Last Taken 12/17/20 08:00 1 tab] Allergy/AdvReac Type Severity Reaction Status Date / Time azithromycin AdvReac Upset Verified 12/18/20 11:30 Stomach Surgical History History of delivery History of surgery Social History Smoking Status: Never smoker ROS Review of Systems ROS Unobtainable: due to mental status Physical Exam Const alert and oriented x3 Constitutional Narrative: Pale General Appearance: cooperative, well developed and lethargic Nutritional Appearance: obese HEENT normocephalic and head/scalp atraumatic Mouth: dry mucous membranes Eyes PERRL and EOMs intact bilaterally Neck full ROM and no lymphadenopathy Chest inspection of chest normal Resp normal respiratory effort and no use of accessory muscles Effort and Inspection: able to speak in complete sentences Auscultation: clear to auscultation bilaterally; Negative for rales, rhonchi or wheezes Percussion: Negative for dullness Cardio regular rhythm, S1 normal heart sound, S2 normal heart sound, no murmurs, no rub and no gallops Rate: tachycardic GI GI Narrative: Gravid uterus palpable Palpation: tender; Negative for guarding or rigid no CVA tenderness Extremity General Extremity: edema bilateral (Trace lower extremity); Negative for clubbing or cyanosis Skin no rashes or lesions noted Neuro oriented x3, CN's II-XII intact bilaterally, moves all extremities and no focal motor deficits Psych cooperative Mood & Affect: tearful and flat affect Medical Records Data Medical Nutrition Assessment Dietitian: Nutrition Therapy Diagnosis Start: 12/23/20 11:24 Freq: Status: Active Protocol: Document 12/23/20 11:37 JEAN-PIERRE (Rec: 12/23/20 11:37 JEAN-PIERRE [id number]) Nutrition Malnutrition Evidence of Malnutrition Exists No Intake Problem Inadequate Oral Intake Etiology related to acute illness Signs/Symptoms as evidenced by 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 Status Active Problem Recommendation Dietitian Recommendations/Changes As medically able, rec diet as tolerated to Regular Lab / Micro Data Result Diagrams: 12/23/20 09:58 12/23/20 09:58 Labs: Laboratory Results - last 24 hr 12/21/20 12:25: Crossmatch See Detail 12/23/20 09:58: WBC 11.2 H, RBC 2.63 L, Hgb 7.5 L, Hct 23.2 L, MCV 88.2, MCH 28.5, MCHC 32.3, RDW Std Deviation 45.6 H, RDW Coeff of Ryan 14.2, Plt Count 191, MPV 9.5 12/23/20 09:58: Sodium 141, Potassium 3.6, Chloride 111 H, Carbon Dioxide 21.0, Anion Gap 9, BUN 6 L, Creatinine 0.62, BUN/Creatinine Ratio 9.7 L, Glucose 106 12/23/20 11:15: PT 16.5 H, INR 1.4, APTT 32.9 Micro: Microbiology 12/21/20 00:00 Urine, Catheterized Urine Culture - Preliminary Streptococcus agalactiae (B) Charges/Coding Visit Charges Inpatient E&M: 39422 Init Hosp L3
[2020-12-23] MEDS: Famotidine 200 MG/20 ML MDV 20 MG in 0.9% Normal Saline (Pres. free 8 ML 300 MG IV (12:39)
[2020-12-23] MEDS: Acetaminophen 500 MG Tablet 1000 MG PO ×3 (12:39→23:59)
[2020-12-23 13:51] LABS: Gentamicin, Random < 0.2 ug/mL
--- NOTE | 2020-12-23 14:50 | NURSING ---
patient stated I feel funny, lightheaded and a little dizzy, and nauseated. Unable to give zofran, can give compazine, patient declined compazine, will give zofran when due. VSS, skin assessment noted reddened area on outer right thigh, center of site warm, tender, outlined, Skinny aware and at bedside. Per Skinny, ok to give antibiotics that are due.
--- NOTE | 2020-12-23 15:18 | PCM.RX.CS ---
Consult Pharmacy has been consulted to manage selected antiobiotic: Gentamicin Type of Consult: Follow-up Suspected Infection: Other Prior Doses of Antibiotics Received/Current Regimen: Currently on 330mg iv q24h. Labs: Sodium 141 mmol/L (136-145) 12/23/20 09:58 Potassium 3.6 mmol/L (3.5-5.1) 12/23/20 09:58 Chloride 111 mmol/L (98-107) H 12/23/20 09:58 Carbon Dioxide 21.0 mmol/L (21.0-32.0) 12/23/20 09:58 Anion Gap 9 (5-15) 12/23/20 09:58 BUN 6 mg/dL (7-18) L 12/23/20 09:58 Creatinine 0.62 mg/dL (0.55-1.02) 12/23/20 09:58 BUN/Creatinine Ratio 9.7 RATIO (10-20) L 12/23/20 09:58 Glucose 106 mg/dL (74-106) 12/23/20 09:58 Random Gentamicin < 0.2 ug/mL 12/23/20 12:50 Microbiology: Microbiology 12/21/20 00:00 Urine, Catheterized Urine Culture - Preliminary Streptococcus agalactiae (B) Weight used for dosin.2 kg Estimated Creatinine Clearance: >120ml/min Goal Trough: Other Pharmacy Plan for Drug Dosing: Today's random level ~24hrs post last dose was <0.2 with goal of <1mcg/ml. Will continue same dose and freq. A trough level has been ordered for in 5 days on 12.27.20. Pharmacy Service will continue to monitor and adjust dosing as required. Follow-Up Labs: Trough Gentamicin - 12.27.20 @1430 before 1500 dose
[2020-12-23 15:32] LABS: Hematocrit 20.4 % (37-47); Hemoglobin 6.8 g/dL (12.0-15.0)
--- NOTE | 2020-12-23 15:36 | NURSING ---
1415 FF U/1. Bakri balloon intact with small red drainage. No lochia noted at this time. Pt. talking with mother at bedside.
[2020-12-23] MEDS: Phytonadione (Vit K1) 5 MG TABLET PO (16:11)
--- NOTE | 2020-12-23 17:22 | NURSING ---
1645 Baby to room for mom to hold. Her mother in room and attentive to pt. Bakri balloon intact and draining scant dark red drainage. Scant lochia. FF U/1. Emotional support given and pt states she is ready for baby to be released to [facility]
--- NOTE | 2020-12-23 20:55 | NURSING ---
2030 FF U/1, scant lochia noted at this time. Bakri balloon intact with small red drainage. Vital signs and Bakri I/O documented per ICU staff. Emotional support given, patient states she is hoping to return to [facility] once she is stabilized.
[2020-12-23 21:26] LABS: Hematocrit 24.3 % (37-47); Hemoglobin 8.2 g/dL (12.0-15.0)
[2020-12-24] VITALS (33 sets, daily range): BP systolic 92–130; BP diastolic 56–78; PULSE 77–99; RESP 12–26; TEMP 36.5–37.2; O2SAT 96–100
[2020-12-24] MEDS: Ondansetron 4 MG/2 ML Vial IV ×3 (00:38→11:36)
[2020-12-24] MEDS: Zolpidem Tartrate 5 MG Tablet ORAL (01:06)
--- NOTE | 2020-12-24 01:36 | NURSING ---
RN called to room by DOCKMASTER. Patient very tearful and requesting this RN to come to room. [facility] and [place] RN helped patient OOB to bedside commode. Patient tolerated well and able to have BM. Patient states she cannot sleep and is emotionally and physically exhausted. DOCKMASTER to give sleep aide. This RN provided emotional support. Patient states she is feeling a little better when this RN left room.
[2020-12-24 04:37] LABS: Hematocrit 21.9 % (37-47); Hemoglobin 7.5 g/dL (12.0-15.0); Mean Corp Hgb Conc 34.2 g/dL (32-36); Mean Corpuscular Hgb 29.5 pg (27.0-32.0); Mean Corpuscular Volume 86.2 fL (81-99); Platelet Count 170 K/mm3 (150-450); RBC Distribution Width CV 13.9 % (11.6-14.6); RBC Distribution Width SD 43.5 fl (35.1-43.9); Red Blood Count 2.54 M/mm3 (4.2-5.4); White Blood Count 10.9 K/mm3 (4.4-11.0)
[2020-12-24 04:53] LABS: Anion Gap 9 (5-15); BUN 5 mg/dL (7-18); BUN/Creat Ratio 9.7 RATIO (10-20); Chloride 110 mmol/L (98-107); Creatinine, Serum 0.52 mg/dL (0.55-1.02); EST Glomerular Filtration Rate 141 mL/min (>60); Est Glom Filt Rate - Afr Amer 170 mL/min (>60); Glucose 79 mg/dL (74-106); Potassium 2.7 mmol/L (3.5-5.1); Sodium Level 141 mmol/L (136-145)
[2020-12-24] MEDS: Acetaminophen 500 MG Tablet 1000 MG PO (05:29)
--- NOTE | 2020-12-24 06:57 | PN.CC_ITS ---
Assessment & Plan Assessment/Plan (1) hemorrhage: (2) demise before 22 weeks with retention of fetus: (3) Hemorrhagic shock: PLAN: RECOMMENDATIONS: 1. Continue serial H&H every 6 2. Transfuse to keep hemoglobin greater than 8 until clinical cessation of bleeding 3. Continue antibiotics per OB 4. Aggressive electrolyte repletion 5. Continue albuterol as needed. No steroids at this time 6. Check INR with next H&H to see if epidural can be discontinued IMPRESSIONS: 1. Hemorrhagic shock secondary to acute blood loss anemia secondary to postoperative bleeding Patient with significant bleeding noted by anesthesia. Patient reportedly had 4 L of estimated blood loss, but appears to have been hemodynamically stabilized with just 2 units of packed red blood cells for now. However, patient would be at risk for DIC or consumptive coagulopathy. Patient no longer has signs clinical bleeding, so will possibly attempt to keep hemoglobin greater than 7 after currently ordered transfusions. No indication for pressors at this time. Patient did receive medical therapy by OB postoperatively to help with bleeding. 2. Chorioamnionitis secondary to premature rupture of membranes Patient is currently on antibiotics. Leukocytosis appears to be improved, but some of this may be delusional. Patient does have a slightly elevated INR, but does not appear to be in DIC at this time. Check INR with next H&H to see if epidural can be discontinued. UA is not suggestive of UTI. We will continue to monitor. No indication for central line at this time. If patient stabilizes later in the day, possibly okay [facility]. We will continue to monitor. Subjective Subjective Patient did well overnight. Little bleeding has been reported from uterine balloon. Patient states abdominal pain is improved, but still present. Patient's rash on right thigh is completely resolved and she denies any itching or other symptomatology in that area. No hemodynamic instability has been reported overnight. Patient is not reporting any nausea. Objective Data Objective Data Vital Signs: Vital Signs Temp Pulse Resp BP Pulse Ox 36.5 C L 77 16 110/69 97 12/24/20 04:00 12/24/20 05:00 12/24/20 05:00 12/24/20 05:00 12/24/20 05:00 Oxygen Delivery Method Room Air Weight: 118.3 kg Body Mass Index (BMI) 35.7 Intake & Output: Intake and Output for Last 24 Hours 12/22/20 12/23/20 12/24/20 23:59 23:59 23:59 Intake Total 6906.98 / 6906.98 8625.83 / 8625.83 415.5 / 415.5 Output Total 2600 / 2600 3575 / 4200 625 / 625 Balance 4306.98 / 4306.98 5050.83 / 4425.83 -209.5 / -209.5 Medical Nutrition Assessment Dietitian: Nutrition Therapy Diagnosis Start: 12/23/20 11:24 Freq: Status: Active Protocol: Document 12/23/20 11:37 SLA (Rec: 12/23/20 11:37 SLA [id number]) Nutrition Malnutrition Evidence of Malnutrition Exists No Intake Problem Inadequate Oral Intake Etiology related to acute illness Signs/Symptoms as evidenced by 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 Status Active Problem Recommendation Dietitian Recommendations/Changes As medically able, rec diet as tolerated to Regular Lab / Micro Data Result Diagrams: 12/24/20 03:50 12/24/20 03:50 Labs: Laboratory Results - last 24 hr 12/21/20 12:25: Crossmatch See Detail 12/21/20 12:25: Crossmatch See Detail 12/23/20 09:58: WBC 11.2 H, RBC 2.63 L, Hgb 7.5 L, Hct 23.2 L, MCV 88.2, MCH 28.5, MCHC 32.3, RDW Std Deviation 45.6 H, RDW Coeff of Ryan 14.2, Plt Count 191, MPV 9.5 12/23/20 09:58: Sodium 141, Potassium 3.6, Chloride 111 H, Carbon Dioxide 21.0, Anion Gap 9, BUN 6 L, Creatinine 0.62, BUN/Creatinine Ratio 9.7 L, Glucose 106 12/23/20 11:15: PT 16.5 H, INR 1.4, APTT 32.9 12/23/20 12:50: Random Gentamicin < 0.2 12/23/20 15:15: Hgb 6.8 L, Hct 20.4 L 12/23/20 21:10: Hgb 8.2 L, Hct 24.3 L 12/24/20 03:50: WBC 10.9, RBC 2.54 L, Hgb 7.5 L, Hct 21.9 L, MCV 86.2, MCH 29.5, MCHC 34.2 D, RDW Std Deviation 43.5, RDW Coeff of Ryan 13.9, Plt Count 170, MPV 10.0 12/24/20 03:50: Sodium 141, Potassium 2.7 L*, Chloride 110 H, Carbon Dioxide 22.0, Anion Gap 9, BUN 5 L, Creatinine 0.52 L, Estim Creat Clear Calc 151.80, Est GFR (MDRD) Af Amer 170, Est GFR (MDRD) Non-Af 141, BUN/Creatinine Ratio 9.7 L, Glucose 79, Calcium 7.0 L Micro: Microbiology 12/21/20 00:00 Urine, Catheterized Urine Culture - Preliminary Streptococcus agalactiae (B) Physical Exam Const alert and oriented x3 Constitutional Narrative: Color much improved compared to yesterday General Appearance: cooperative, well developed and lethargic Nutritional Appearance: obese HEENT normocephalic and head/scalp atraumatic Eyes PERRL and EOMs intact bilaterally Neck full ROM and no lymphadenopathy Chest inspection of chest normal Resp normal respiratory effort and no use of accessory muscles Effort and Inspection: able to speak in complete sentences Auscultation: clear to auscultation bilaterally; Negative for rales, rhonchi or wheezes Percussion: Negative for dullness Cardio regular rhythm, S1 normal heart sound, S2 normal heart sound, no murmurs, no rub and no gallops Rate: tachycardic GI GI Narrative: uterus palpable Inspection: Negative for abdominal wall ecchymosis Auscultation: normoactive bowel sounds Palpation: tender suprapubic; Negative for guarding or rigid no CVA tenderness Extremity General Extremity: edema bilateral (Trace lower extremity); Negative for clubbing or cyanosis Skin no rashes or lesions noted Neuro oriented x3, CN's II-XII intact bilaterally, moves all extremities and no focal motor deficits Psych cooperative Attitude: calm Activity / Motor Behavior: appropriate eye contact Speech: normal speech Mood & Affect: euthymic mood Charges/Coding Visit Charges Inpatient E&M: 24429 Subs Hosp L3
[2020-12-24] MEDS: Potassium Chloride 10mEq/100mL 10 MEQ/100 ML IV.SOLN. 100 MEQ IV BOLUS ×4 (07:14→11:48)
--- NOTE | 2020-12-24 08:20 | PN.OBGYN_ITS ---
Subjective Subjective Patient overall anxious and mildly uncomfortable with her IJ. Minimal vaginal bleeding overnight. Denies fevers or chills. Desires to get back to labor and delivery when possible because this is where she feels the most comfortable. Objective Data Objective Data Vital Signs: Vital Signs Temp Pulse Resp BP Pulse Ox 98.3 F 98 12 117/65 99 12/24/20 07:15 12/24/20 07:15 12/24/20 07:15 12/24/20 07:15 12/24/20 07:15 Oxygen Delivery Method Room Air Weight: 260 lb 12.909 oz Body Mass Index (BMI) 35.7 Intake & Output: Intake and Output for Last 24 Hours 12/22/20 12/23/20 12/24/20 23:59 23:59 23:59 Intake Total 6906.98 / 6906.98 8625.83 / 8625.83 621.5 / 621.5 Output Total 2600 / 2600 3575 / 4200 1050 / 1050 Balance 4306.98 / 4306.98 5050.83 / 4425.83 -428.5 / -428.5 Medical Nutrition Assessment Dietitian: Nutrition Therapy Diagnosis Start: 12/23/20 11:24 Freq: Status: Active Protocol: Document 12/23/20 11:37 SLA (Rec: 12/23/20 11:37 SLA [id number]) Nutrition Malnutrition Evidence of Malnutrition Exists No Intake Problem Inadequate Oral Intake Etiology related to acute illness Signs/Symptoms as evidenced by 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 Status Active Problem Recommendation Dietitian Recommendations/Changes As medically able, rec diet as tolerated to Regular Lab / Micro Data Result Diagrams: 12/24/20 03:50 12/24/20 03:50 Labs: Laboratory Results - last 24 hr 12/21/20 12:25: Crossmatch See Detail 12/21/20 12:25: Crossmatch See Detail 12/23/20 09:58: WBC 11.2 H, RBC 2.63 L, Hgb 7.5 L, Hct 23.2 L, MCV 88.2, MCH 28.5, MCHC 32.3, RDW Std Deviation 45.6 H, RDW Coeff of Ryan 14.2, Plt Count 191, MPV 9.5 12/23/20 09:58: Sodium 141, Potassium 3.6, Chloride 111 H, Carbon Dioxide 21.0, Anion Gap 9, BUN 6 L, Creatinine 0.62, BUN/Creatinine Ratio 9.7 L, Glucose 106 12/23/20 11:15: PT 16.5 H, INR 1.4, APTT 32.9 12/23/20 12:50: Random Gentamicin < 0.2 12/23/20 15:15: Hgb 6.8 L, Hct 20.4 L 12/23/20 21:10: Hgb 8.2 L, Hct 24.3 L 12/24/20 03:50: WBC 10.9, RBC 2.54 L, Hgb 7.5 L, Hct 21.9 L, MCV 86.2, MCH 29.5, MCHC 34.2 D, RDW Std Deviation 43.5, RDW Coeff of Ryan 13.9, Plt Count 170, MPV 10.0 12/24/20 03:50: Sodium 141, Potassium 2.7 L*, Chloride 110 H, Carbon Dioxide 22.0, Anion Gap 9, BUN 5 L, Creatinine 0.52 L, Estim Creat Clear Calc 151.80, Est GFR (MDRD) Af Amer 170, Est GFR (MDRD) Non-Af 141, BUN/Creatinine Ratio 9.7 L, Glucose 79, Calcium 7.0 L Micro: Microbiology 12/21/20 00:00 Urine, Catheterized Urine Culture - Final Streptococcus agalactiae (B) Physical Exam Const alert, oriented x3, no apparent distress, average body habitus, healthy appearing and well nourished HEENT normocephalic and moist oral mucous membranes Head and Scalp: atraumatic Neck full ROM Resp normal respiratory effort, no retractions and no use of accessory muscles GI normal to inspection, nondistended, normoactive bowel sounds Narrative: Bakri balloon with no bleeding or drainage in bag. No bleeding on the pad or the vagina Extremity normal to inspection, full ROM and no clubbing, cyanosis or edema Psych mental status grossly normal, affect normal, speech normal and activity/motor behavior normal Assessment & Plan (1) Hemorrhagic shock: PLAN: POD#1 s/p Hysterostatomy for uterine demise complicated by acute blood loss s/p 5U PRBCs 1U FFP. To transfuse 2U PRBCs today per ICU. Bakri balloon in place with 260cc, minimal bleeding overnight. 25cc removed now. Will continue to remove fluid from bakri every 4-8 hours pending bleeding and stability. To remove epidural when ensured stable clotting factors. Chorioamnionitis on Amp/Gent/Clinda, will d/c Abx after 24 hours. Okay for regular diet and okay to get up to chair with assistance if stable bleeding. Appreciate ICU management.
--- NOTE | 2020-12-24 08:32 | NURSING ---
Dr. Chago PERES came to bedside and released 25cc of fluid out of intrauterine balloon at 0800. pt stable at this time.
--- NOTE | 2020-12-24 09:21 | CASEMGMT ---
Social Work Presented to patient's room in the CVICU. Nursing providing patient care at bedside. Will return at later time to meet with patient for support and resources. -ROSEANN Quinn, TAP OUT OPERATOR
[2020-12-24 13:51] LABS: Pathology Specimen OB SEE PATHOLOGY REPORT
--- NOTE | 2020-12-24 13:58 | NURSING ---
Bakri baloon in place, scant amount dark red drainage noted in tubing, not measurable. Per care performed at this time and clean pad placed under her. She is refusing underwear at this time for comfort reasons, has some in bathroom when ready. Emotional support offered. at bedside.
[2020-12-24 14:26] LABS: Hematocrit 25.7 % (37-47); Hemoglobin 8.8 g/dL (12.0-15.0)
[2020-12-24] MEDS: Famotidine 200 MG/20 ML MDV 20 MG in 0.9% Normal Saline (Pres. free 8 ML 300 MG IV (14:34)
[2020-12-24 14:35] LABS: International Normalized Ratio 1.2; Prothrombin Time (Protime)PT. 14.1 SECONDS (11.7-14.9)
[2020-12-24 14:41] LABS: Potassium 3.3 mmol/L (3.5-5.1)
--- NOTE | 2020-12-24 15:34 | CASEMGMT ---
Social Work Reason for Referral: infant loss; support Informant: Medical record, patient/mother of baby (MOB), and father of baby (FOB) Kenneth Lopez. History: Patient/MOB is a 40 year old female. Presented to [facility] with premature rupture of membranes on 12.18.2020 with subsequent demise, delivering baby elisa Reyes on 12.23.2020 at 21 weeks gestation. Per record, MOB with chorio and also experienced hemorrhage resulting in transfer from labor and delivery unit to the ICU. MOB is to father of baby GRETCHEN Lopez. MOB and FOB have 2 children at home: Jocelyn (age 8) and Lucio (age 6). MOB reports to have had no complications with first two pregnancies or birthing experiences. 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 No reports or indication of substance use history. No reports of domestic violence or safety concerns in the home, which MOB denied upon admission to the labor and delivery unit. MOB endorses long history, since childhood, of anxiety managed on own without the aid of medications or counseling. Reports history of depression after both Jocelyn and Lucio, which lasted for a few months in both instances. MOB reports both times would just wake up one day and feel okay. No history of thoughts of harm to self or suicide. No reports of thoughts of harm to others. Assessment: Met with MOB and FOB in room, introducing to self. MOB and FOB both receptive to social work visit, talkative and engaged in conversation. MOB and FOB both shared respective experiences regarding this as a whole, premature delivery and loss of infant. MOB reports was able to hold Reyes and is glad she did so. FOB chose not to hold the baby, and reports to be accepting and comfortable with having pictures of Reyes. Parents able to express support of each other in how each parent is handling this experience and the grieving process. Allowed both parents time and opportunity to talk about respective experiences, thoughts, emotions. Talked with both parents about self care. FOB has been trying to spend time between the hospital and and home checking on the kids, keeping in communication with employer regarding needed time off. MOB's mother is an identified support, and comes to be with MOB when the FOB takes a turn at home. Supportive listening, encouragement, reflection, and validation offered. Discussed some coping techniques/grounding exercise the MOB can try as MOB reports the night time is the hardest. MOB reports to feel better when her mother or the FOB are present in the room, just knowing that someone is near. Educted to increased risk for mood and anxiety issues in this period, complicated by grief, in light of MOB's recent medical and delivery experiences. Additional stressors including the MOB's stepfather dying during this , and the 6 year old son having a recent ATV accident with stay at [facility]. MOB endorses she likely had not fully recovered from Lucio's experience before coming to the hospital for Reyes. MOB's affect constricted, teary eyed a few times but did not cry. FOB's affect constricted as well, appearing tired and expressing that trying to manage being present for both the MOB and kids. Let parents know there is no prescribed time for grieving, that will likely experience a variety of emotions, and that may experience thoughts/feeling differently from each other. Talked about possible medication and/or counseling should symptoms of depression, anxiety, or grief become distressing. Provided parents with handouts on parents and grieving, coping, online resource for parents who have lost a child, local support groups and counseling. Left this copywriter's name and number as well. Informed MOB that this copywriter remains available for support during MOB's hospital stay. MOB expressed understanding. Both MOB and FOB expressed thanks for social work visit and taking time to talk and listen. MOB looking forward to eating some food this afternoon and hopeful to get some rest. Plan: MOB will discharge home with family support when medically stable. Resources provided for grieving and depression/anxiety. Social work remains available during hospital stay for continued support as needed/indicated. . -EARLE Quinn, ELVIN
--- NOTE | 2020-12-24 15:54 | NURSING ---
Late note: This nurse provided bedside care from [id number]. Fundus was firm and @U. No VB. Bakri balloon was intact and small amount of VB in tubing but none in bag. Assisted with bathing while sitting up at bedside, gown change, and oral care. Assisted pt to bedside commode. Pt had a small/loose BM. Changed bedsheets at this time. Pt ambulated to chair in room. Tolerated well, asymptomatic with ambulation. Pt was tearful at this time. Encouraged pt to allow herself to grieve. Emotional support provided.
[2020-12-24] MEDS: Potassium Chloride Oral Tablet 20 MEQ 40 MEQ PO (18:44)
--- NOTE | 2020-12-24 18:55 | PN.OBGYN_ITS ---
Subjective Subjective Patient feeling much improved. Feels more energetic. Tolerating regular diet. Up to chair very comfortable. Objective Data Objective Data Vital Signs: Vital Signs Temp Pulse Resp BP Pulse Ox 98 F 91 22 H 116/66 100 12/24/20 16:00 12/24/20 17:00 12/24/20 17:00 12/24/20 17:00 12/24/20 17:00 Oxygen Delivery Method Room Air Weight: 260 lb 12.909 oz Body Mass Index (BMI) 35.7 Intake & Output: Intake and Output for Last 24 Hours 12/22/20 12/23/20 12/24/20 23:59 23:59 23:59 Intake Total 6906.98 / 6906.98 8625.83 / 8625.83 2941.5 / 2941.5 Output Total 2600 / 2600 3575 / 4200 2175 / 2175 Balance 4306.98 / 4306.98 5050.83 / 4425.83 766.5 / 766.5 Medical Nutrition Assessment Dietitian: Nutrition Therapy Diagnosis Start: 12/23/20 1 1:24 Freq: Status: Active Protocol: Document 12/24/20 09:40 AG (Rec: 12/24/20 09:41 AG [id number]) Nutrition Malnutrition Evidence of Malnutrition Exists No Intake Problem Inadequate Oral Intake Etiology related to decreased appetite d/t acute illness, need for NPO status d/t clinical condition Signs/Symptoms as evidenced by 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 Recommend 120mL Ensure Enlive 4x/day w/ medpass if PO intake at meals is poor and pt is agreeable to supplement. Lab / Micro Data Result Diagrams: 12/24/20 14:20 Labs: Laboratory Results - last 24 hr 12/21/20 12:25: Crossmatch See Detail 12/21/20 12:25: Crossmatch See Detail 12/23/20 09:58: Ionized Calcium 4.8 12/23/20 21:10: Hgb 8.2 L, Hct 24.3 L 12/24/20 03:50: WBC 10.9, RBC 2.54 L, Hgb 7.5 L, Hct 21.9 L, MCV 86.2, MCH 29.5, MCHC 34.2 D, RDW Std Deviation 43.5, RDW Coeff of Ryan 13.9, Plt Count 170, MPV 10.0 12/24/20 03:50: Sodium 141, Potassium 2.7 L*, Chloride 110 H, Carbon Dioxide 22.0, Anion Gap 9, BUN 5 L, Creatinine 0.52 L, Estim Creat Clear Calc 151.80, Est GFR (MDRD) Af Amer 170, Est GFR (MDRD) Non-Af 141, BUN/Creatinine Ratio 9.7 L, Glucose 79, Calcium 7.0 L 12/24/20 14:20: Hgb 8.8 L, Hct 25.7 L 12/24/20 14:20: PT 14.1, INR 1.2 12/24/20 14:20: Potassium 3.3 L Micro: Microbiology 12/21/20 00:00 Urine, Catheterized Urine Culture - Final Streptococcus agalactiae (B) Physical Exam Const alert, oriented x3, no apparent distress, average body habitus, healthy appearing and well nourished HEENT normocephalic and moist oral mucous membranes Head and Scalp: atraumatic Face and Sinus: normal facial exam Neck full ROM Resp normal respiratory effort, no retractions and no use of accessory muscles GI normal to inspection, nondistended, normoactive bowel sounds Narrative: No vaginal bleeding Extremity normal to inspection, full ROM and no clubbing, cyanosis or edema Psych mental status grossly normal, affect normal, speech normal and activity/motor behavior normal Assessment & Plan (1) Hemorrhagic shock: PLAN: Now status post 7 units of packed red blood cells 1 unit of FFP. Much improved hemoglobin now stable. Vital signs improving. Matias balloon with 260 cc total of 75 cc removed today, did have incident where when patient got up to chair approximately 30 cc of fluid came out of Matias along with open lock. Overall bleeding very minimal both in Matias bag and vaginally no bleeding. We will continue to empty Bakri bag. Will start p.o. Methergine now. Chorioamnionitis status post 24 hours of antibiotics now afebrile. Epidural removed.
--- NOTE | 2020-12-24 19:11 | NURSING ---
Dr. Anders took 50cc of fluid out of the pt intrauterine device.
[2020-12-25] VITALS (17 sets, daily range): BP systolic 99–126; BP diastolic 66–87; PULSE 56–98; RESP 12–23; TEMP 36.3–37.1; O2SAT 92–99
[2020-12-25] MEDS: Ondansetron 4 MG/2 ML Vial IV (04:16)
[2020-12-25] MEDS: 0.9% Saline Lock 10 ML Syringe IV ×2 (04:17→12:48)
[2020-12-25 04:39] LABS: Absolute Lymphocyte Count 1.55 X10^3/uL (0.83-4.51); Absolute Neutrophil Count 6.3 X10^3/uL (2.0-7.7); Basophil# 0.05 X10^3/uL; Basophil% 0.5 % (0-1); Eosinophil# 0.36 X10^3/uL; Eosinophils% 3.8 % (0-5); Hematocrit 26.4 % (37-47); Hemoglobin 9.2 g/dL (12.0-15.0); Lymphocyte # 1.55 X10^3/ul (0.83-4.51); Lymphocyte % 16.5 % (19-41); Mean Corp Hgb Conc 34.8 g/dL (32-36); Mean Corpuscular Hgb 29.2 pg (27.0-32.0); Mean Corpuscular Volume 83.8 fL (81-99); Mean Platelet Vol. 10.1 fl (6.2-12.0); Monocyte# 0.69 X10^3/uL; Monocyte% 7.3 % (0-10); NRBC Flagged by Analyzer 0 % (0-5); Neutrophil # 6.32 X10^3/uL (2.7-7.7); Neutrophil % 67.4 % (47-70); Platelet Count 217 K/mm3 (150-450); RBC Distribution Width CV 14.3 % (11.6-14.6); RBC Distribution Width SD 43.9 fl (35.1-43.9); Red Blood Count 3.15 M/mm3 (4.2-5.4); White Blood Count 9.4 K/mm3 (4.4-11.0)
[2020-12-25 06:02] LABS: Anion Gap 10 (5-15); BUN 6 mg/dL (7-18); BUN/Creat Ratio 11.2 RATIO (10-20); Calcium,Total 7.8 mg/dL (8.5-10.1); Chloride 109 mmol/L (98-107); Creatinine, Serum 0.53 mg/dL (0.55-1.02); EST Glomerular Filtration Rate 135 mL/min (>60); Est Glom Filt Rate - Afr Amer 163 mL/min (>60); Estimated Creatinine Clearance 148.93 ml/min; Glucose 88 mg/dL (74-106); Potassium 2.8 mmol/L (3.5-5.1); Sodium Level 141 mmol/L (136-145)
--- NOTE | 2020-12-25 06:08 | PN.OBGYN_ITS ---
Subjective Subjective Patient feeling much improved. Energy continues to improve. Minimal vaginal bleeding Objective Data Objective Data Vital Signs: Vital Signs Temp Pulse Resp BP Pulse Ox 98.7 F 78 23 H 115/77 97 12/25/20 00:00 12/25/20 05:00 12/25/20 05:00 12/25/20 05:00 12/25/20 05:00 Oxygen Delivery Method Room Air Weight: 257 lb 11.526 oz Body Mass Index (BMI) 35.7 Intake & Output: Intake and Output for Last 24 Hours 12/23/20 12/24/20 12/25/20 23:59 23:59 23:59 Intake Total 8625.83 / 8625.83 3966.75 / 3966.75 Output Total 3575 / 4200 2925 / 3725 800 / 800 Balance 5050.83 / 4425.83 1041.75 / 241.75 -800 / -800 Medical Nutrition Assessment Dietitian: Nutrition Therapy Diagnosis Start: 12/23/20 11:24 Freq: Status: Active Protocol: Document 12/24/20 09:40 AG (Rec: 12/24/20 09:41 AG [id number]) Nutrition Malnutrition Evidence of Malnutrition Exists No Intake Problem Inadequate Oral Intake Etiology related to decreased appetite d/t acute illness, need for NPO status d/t clinical condition Signs/Symptoms as evidenced by 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 Recommend 120mL Ensure Enlive 4x/day w/ medpass if PO intake at meals is poor and pt is agreeable to supplement. Lab / Micro Data Result Diagrams: 12/25/20 04:30 12/25/20 05:30 Labs: Laboratory Results - last 24 hr 12/21/20 12:25: Crossmatch See Detail 12/21/20 12:25: Crossmatch See Detail 12/23/20 09:58: Ionized Calcium 4.8 12/24/20 14:20: Hgb 8.8 L, Hct 25.7 L 12/24/20 14:20: PT 14.1, INR 1.2 12/24/20 14:20: Potassium 3.3 L 12/25/20 04:30: WBC 9.4, RBC 3.15 L, Hgb 9.2 L, Hct 26.4 L, MCV 83.8, MCH 29.2, MCHC 34.8, RDW Std Deviation 43.9, RDW Coeff of Ryan 14.3, Plt Count 217, MPV 10.1, Immature Gran % (Auto) 4.500 H, Neut % (Auto) 67.4, Lymph % (Auto) 16.5 L, [place] % (Auto) 7.3, Eos % (Auto) 3.8, Baso % (Auto) 0.5, Absolute Neuts (auto) 6.3, Absolute Lymphs (auto) 1.55, Nucleated RBC % 0 12/25/20 05:30: Sodium 141, Potassium 2.8 L, Chloride 109 H, Carbon Dioxide 22.0, Anion Gap 10, BUN 6 L, Creatinine 0.53 L, Estim Creat Clear Calc 148.93, Est GFR (MDRD) Af Amer 163, Est GFR (MDRD) Non-Af 135, BUN/Creatinine Ratio 11.2, Glucose 88, Calcium 7.8 L Micro: Microbiology 12/21/20 00:00 Urine, Catheterized Urine Culture - Final Streptococcus agalactiae (B) Physical Exam Const alert, oriented x3, no apparent distress, average body habitus, healthy appearing and well nourished HEENT normocephalic and moist oral mucous membranes Face and Sinus: normal facial exam Neck full ROM Resp normal respiratory effort, no retractions and no use of accessory muscles Extremity normal to inspection, full ROM and no clubbing, cyanosis or edema Psych mental status grossly normal, affect normal, speech normal and activity/motor behavior normal Assessment & Plan (1) Hemorrhagic shock: PLAN: Postop day 2 status post hysterostatomy complicated by acute blood loss anemia status post 7 units of packed red blood cells 1 unit of FFP. Patient feels much improved, vital signs stabilizing, labs stabilizing. Bakri in place with minimal bleeding in drainage bag along with minimal bleeding on pad. 75 cc taken out of Bakri balloon, approximately 80 cc remaining. Will reevaluate later today for removal of Bakri. Started on p.o. Methergine. Hypokalemia, IV and p.o. potassium replacement. Appreciate ICU input
--- NOTE | 2020-12-25 07:01 | PN.CC_ITS ---
Assessment & Plan Assessment/Plan (1) hemorrhage: (2) demise before 22 weeks with retention of fetus: (3) Hemorrhagic shock: PLAN: RECOMMENDATIONS: 1. Okay to discontinue serial H&H's 2. Potassium repletion 3. Uterine balloon removal per OB 4. Remove Hartmann and EJ once uterine balloon was removed 5. Continue albuterol as needed. No steroids at this time 6. Potential transfer to [facility] later today 7. Hemodynamically stable on room air. Will sign off from a critical care perspective IMPRESSIONS: 1. Hemorrhagic shock secondary to acute blood loss anemia secondary to postoperative bleeding Patient with significant bleeding noted by anesthesia. Patient reportedly had 4 L of estimated blood loss, but appears to have been hemodynamically stabilized after several units of packed red blood cells. Hemoglobin is above 9 for the first time. No clinical bleeding has been noted. 2. Chorioamnionitis secondary to premature rupture of membranes Patient is currently on antibiotics. Leukocytosis appears to be improved, but some of this may be delusional. Patient is currently off of antibiotics and tolerating well. There is been no leukocytosis or fever noted overnight. Uterine balloon should be discontinued by OB. When uterine balloon is discontinued, Hartmann catheter and right EJ can be removed. Patient potentially can be transferred back to [facility] 3. Hypokalemia Aggressive repletion has been ordered. Consider obtaining BMP in the a.m. and replete as necessary Subjective Subjective Patient did well overnight. No acute issues were reported. Patient has had minimal bleeding from her uterine balloon. Spoke with OB this morning and balloon is almost deflated. Patient states her abdominal discomfort is slightly improved compared to yesterday. No clinical bleeding has been reported. Patient is not reporting any muscle cramps and has been doing well on room air. Objective Data Objective Data Vital Signs: Vital Signs Temp Pulse Resp BP Pulse Ox 37.1 C 83 18 123/82 H 98 12/25/20 00:00 12/25/20 06:00 12/25/20 06:00 12/25/20 06:00 12/25/20 06:00 Oxygen Delivery Method Room Air Weight: 116.9 kg Body Mass Index (BMI) 35.7 Intake & Output: Intake and Output for Last 24 Hours 12/23/20 12/24/20 12/25/20 23:59 23:59 23:59 Intake Total 8625.83 / 8625.83 3966.75 / 3966.75 Output Total 3575 / 4200 2925 / 3725 1605 / 1605 Balance 5050.83 / 4425.83 1041.75 / 241.75 -1605 / -1605 Medical Nutrition Assessment Dietitian: Nutrition Therapy Diagnosis Start: 12/23/20 11:24 Freq: Status: Active Protocol: Document 12/24/20 09:40 AG (Rec: 12/24/20 09:41 AG [id number]) Nutrition Malnutrition Evidence of Malnutrition Exists No Intake Problem Inadequate Oral Intake Etiology related to decreased appetite d/t acute illness, need for NPO status d/t clinical condition Signs/Symptoms as evidenced by 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 Recommend 120mL Ensure Enlive 4x/day w/ medpass if PO intake at meals is poor and pt is agreeable to supplement. Lab / Micro Data Result Diagrams: 12/25/20 04:30 12/25/20 05:30 Labs: Laboratory Results - last 24 hr 12/21/20 12:25: Crossmatch See Detail 12/21/20 12:25: Crossmatch See Detail 12/23/20 09:58: Ionized Calcium 4.8 12/24/20 14:20: Hgb 8.8 L, Hct 25.7 L 12/24/20 14:20: PT 14.1, INR 1.2 12/24/20 14:20: Potassium 3.3 L 12/25/20 04:30: WBC 9.4, RBC 3.15 L, Hgb 9.2 L, Hct 26.4 L, MCV 83.8, MCH 29.2, MCHC 34.8, RDW Std Deviation 43.9, RDW Coeff of Ryan 14.3, Plt Count 217, MPV 10.1, Immature Gran % (Auto) 4.500 H, Neut % (Auto) 67.4, Lymph % (Auto) 16.5 L, [place] % (Auto) 7.3, Eos % (Auto) 3.8, Baso % (Auto) 0.5, Absolute Neuts (auto) 6.3, Absolute Lymphs (auto) 1.55, Nucleated RBC % 0 12/25/20 05:30: Sodium 141, Potassium 2.8 L, Chloride 109 H, Carbon Dioxide 22.0, Anion Gap 10, BUN 6 L, Creatinine 0.53 L, Estim Creat Clear Calc 148.93, Est GFR (MDRD) Af Amer 163, Est GFR (MDRD) Non-Af 135, BUN/Creatinine Ratio 11.2, Glucose 88, Calcium 7.8 L Micro: Microbiology 12/21/20 00:00 Urine, Catheterized Urine Culture - Final Streptococcus agalactiae (B) Physical Exam Const alert, oriented x3 and no apparent distress Constitutional Narrative: Normal color today Nutritional Appearance: obese HEENT normocephalic and head/scalp atraumatic Eyes PERRL and EOMs intact bilaterally Neck full ROM and no lymphadenopathy Chest inspection of chest normal Resp normal respiratory effort and no use of accessory muscles Effort and Inspection: able to speak in complete sentences Auscultation: clear to auscultation bilaterally; Negative for rales, rhonchi or wheezes Percussion: Negative for dullness Cardio regular rhythm, S1 normal heart sound, S2 normal heart sound, no murmurs, no rub and no gallops GI Inspection: Negative for abdominal wall ecchymosis Auscultation: normoactive bowel sounds Palpation: tender suprapubic; Negative for guarding or rigid no CVA tenderness Extremity General Extremity: edema bilateral (Trace lower extremity); Negative for clubbing or cyanosis Skin no rashes or lesions noted Neuro oriented x3, CN's II-XII intact bilaterally, moves all extremities and no focal motor deficits Psych cooperative Attitude: calm Activity / Motor Behavior: appropriate eye contact Speech: normal speech Mood & Affect: euthymic mood Charges/Coding Visit Charges Inpatient E&M: 62831 Subs Hosp L2
[2020-12-25] MEDS: Potassium Chloride 10mEq/100mL 10 MEQ/100 ML IV.SOLN. 100 MEQ IV BOLUS ×4 (08:10→11:45)
[2020-12-25] MEDS: Acetaminophen 500 MG Tablet 1000 MG PO ×2 (08:28→11:45)
--- NOTE | 2020-12-25 08:28 | PCM.PN.OB ---
Subjective Subjective No complaints Objective Data Objective Data Vital Signs: Vital Signs Temp Pulse Resp BP Pulse Ox 98.7 F 83 18 123/82 H 98 12/25/20 00:00 12/25/20 07:25 12/25/20 06:00 12/25/20 06:00 12/25/20 06:00 Oxygen Delivery Method Room Air Weight: 257 lb 11.526 oz Body Mass Index (BMI) 35.7 Intake & Output: Intake and Output for Last 24 Hours 12/23/20 12/24/20 12/25/20 23:59 23:59 23:59 Intake Total 8625.83 / 8625.83 3966.75 / 3966.75 Output Total 3575 / 4200 2925 / 3725 1605 / 1605 Balance 5050.83 / 4425.83 1041.75 / 241.75 -1605 / -1605 Medical Nutrition Assessment Dietitian: Nutrition Therapy Diagnosis Start: 12/23/20 11:24 Freq: Status: Active Protocol: Document 12/24/20 09:40 AG (Rec: 12/24/20 09:41 AG [id number]) Nutrition Malnutrition Evidence of Malnutrition Exists No Intake Problem Inadequate Oral Intake Etiology related to decreased appetite d/t acute illness, need for NPO status d/t clinical condition Signs/Symptoms as evidenced by 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 Recommend 120mL Ensure Enlive 4x/day w/ medpass if PO intake at meals is poor and pt is agreeable to supplement. Lab / Micro Data Result Diagrams: 12/25/20 04:30 12/25/20 05:30 Labs: Laboratory Results - last 24 hr 12/21/20 12:25: Crossmatch See Detail 12/21/20 12:25: Crossmatch See Detail 12/23/20 09:58: Ionized Calcium 4.8 12/24/20 14:20: Hgb 8.8 L, Hct 25.7 L 12/24/20 14:20: PT 14.1, INR 1.2 12/24/20 14:20: Potassium 3.3 L 12/25/20 04:30: WBC 9.4, RBC 3.15 L, Hgb 9.2 L, Hct 26.4 L, MCV 83.8, MCH 29.2, MCHC 34.8, RDW Std Deviation 43.9, RDW Coeff of Ryan 14.3, Plt Count 217, MPV 10.1, Immature Gran % (Auto) 4.500 H, Neut % (Auto) 67.4, Lymph % (Auto) 16.5 L, [place] % (Auto) 7.3, Eos % (Auto) 3.8, Baso % (Auto) 0.5, Absolute Neuts (auto) 6.3, Absolute Lymphs (auto) 1.55, Nucleated RBC % 0 12/25/20 05:30: Sodium 141, Potassium 2.8 L, Chloride 109 H, Carbon Dioxide 22.0, Anion Gap 10, BUN 6 L, Creatinine 0.53 L, Estim Creat Clear Calc 148.93, Est GFR (MDRD) Af Amer 163, Est GFR (MDRD) Non-Af 135, BUN/Creatinine Ratio 11.2, Glucose 88, Calcium 7.8 L Micro: Microbiology 12/21/20 00:00 Urine, Catheterized Urine Culture - Final Streptococcus agalactiae (B) Physical Exam Const alert, oriented x3, no apparent distress, average body habitus, healthy appearing and well nourished HEENT normocephalic and moist oral mucous membranes Face and Sinus: normal facial exam Neck full ROM Resp normal respiratory effort, no retractions and no use of accessory muscles GI normal to inspection, nondistended, normoactive bowel sounds Narrative: No bleeding in bakri bag, no bleeding on pad Extremity normal to inspection, full ROM and no clubbing, cyanosis or edema Psych mental status grossly normal, affect normal, speech normal and activity/motor behavior normal Assessment & Plan (1) Hemorrhagic shock: PLAN: Patient seen and examined. Minimal bleeding in bag and not in pad. Bakri balloon removed. To replace potassium and to move to labor delivery floor out of the ICU
[2020-12-25] MEDS: Potassium Chloride Oral Tablet 20 MEQ PO (08:33)
[2020-12-25] MEDS: Famotidine 20 MG Tablet PO ×2 (10:40→22:02)
--- NOTE | 2020-12-25 18:45 | PCM.PN.OB ---
Subjective Subjective Kirstie reports anxiety and feels panicked being here. She would like to go home. She reports she is grateful for her care and that the staff has been good to her, but she really wants to leave. Reports mild cramping related to the methergine. She had a couple bowel movements over the last day and reports resolution of her discharge. She has light bleeding now like a light period. She denies sx of anemia. Objective Data Objective Data Vital Signs: Vital Signs Temp Pulse Resp BP Pulse Ox 97.3 F L 72 16 126/72 H 99 12/25/20 17:00 12/25/20 17:00 12/25/20 17:00 12/25/20 17:00 12/25/20 17:00 Oxygen Delivery Method Room Air Weight: 116.9 kg Body Mass Index (BMI) 35.7 Intake & Output: Intake and Output for Last 24 Hours 12/23/20 12/24/20 12/25/20 23:59 23:59 23:59 Intake Total 8625.83 / 8625.83 3966.75 / 3966.75 1380 / 1380 Output Total 3575 / 4200 2925 / 3725 2004 Balance 5050.83 / 4425.83 1041.75 / 241.75 -625 / -625 Medical Nutrition Assessment Dietitian: Nutrition Therapy Diagnosis Start: 12/23/20 11:24 Freq: Status: Active Protocol: Document 12/25/20 09:46 AG (Rec: 12/25/20 09:46 AG [id number]) Nutrition Malnutrition Evidence of Malnutrition Exists No Intake Problem Inadequate Oral Intake Etiology - Signs/Symptoms - Status Resolved Problem Recommendation Dietitian Recommendations/Changes Continue regular diet. Nutritionally stable, consult RDN as indicated. Lab / Micro Data Result Diagrams: 12/25/20 04:30 12/25/20 05:30 Labs: Laboratory Results - last 24 hr 12/25/20 04:30: WBC 9.4, RBC 3.15 L, Hgb 9.2 L, Hct 26.4 L, MCV 83.8, MCH 29.2, MCHC 34.8, RDW Std Deviation 43.9, RDW Coeff of Ryan 14.3, Plt Count 217, MPV 10.1, Immature Gran % (Auto) 4.500 H, Neut % (Auto) 67.4, Lymph % (Auto) 16.5 L, [place] % (Auto) 7.3, Eos % (Auto) 3.8, Baso % (Auto) 0.5, Absolute Neuts (auto) 6.3, Absolute Lymphs (auto) 1.55, Nucleated RBC % 0 12/25/20 05:30: Sodium 141, Potassium 2.8 L, Chloride 109 H, Carbon Dioxide 22.0, Anion Gap 10, BUN 6 L, Creatinine 0.53 L, Estim Creat Clear Calc 148.93, Est GFR (MDRD) Af Amer 163, Est GFR (MDRD) Non-Af 135, BUN/Creatinine Ratio 11.2, Glucose 88, Calcium 7.8 L Micro: Microbiology 12/21/20 00:00 Urine, Catheterized Urine Culture - Final Streptococcus agalactiae (B) Physical Exam Const alert and oriented x3 Constitutional Narrative: tearful Assessment & Plan (1) Hypokalemia: (2) Hemorrhagic shock: (3) hemorrhage: COMMENT: POD#2 s/p vaginal section for PPROM with IUFD and chorioamnionitis complicated by hemorrhagic shock s/p 7u prbc and 1u ffp PLAN: Recommend observation overnight as Bakri balloon removed today to observe for bleeding given extent of hemorrhage H/H otherwise stable Plan for repeat BMP in the morning, low calcium likely 2/2 transfusion Discussed strategies to manage anxiety inpatient overnight Support offered Reviewed patient that it is her choice to stay and advised may leave AMA if desires discharge this evening Patient considering further
[2020-12-26 02:38] VITALS: BP 112/55; PULSE 77; RESP 18; TEMP 36.3
[2020-12-26 05:45] LABS: Hematocrit 31.5 % (37-47); Hemoglobin 10.4 g/dL (12.0-15.0); Mean Corpuscular Hgb 28.5 pg (27.0-32.0); Mean Corpuscular Volume 86.3 fL (81-99); Mean Platelet Vol. 9.4 fl (6.2-12.0); POSITIVE COUNT YES; POSITIVE MORPHOLOGY YES; Platelet Count 271 K/mm3 (150-450); RBC Distribution Width CV 14.2 % (11.6-14.6); RBC Distribution Width SD 44.5 fl (35.1-43.9); Red Blood Count 3.65 M/mm3 (4.2-5.4)
[2020-12-26 05:52] LABS: Differential Indicated MANUAL DIFF
[2020-12-26 06:01] LABS: Absolute Neutrophil Count 6.4 X10^3/uL (2.0-7.7)
[2020-12-26 06:02] LABS: Eosinophil 4 % (0-5); Lymphocyte 21 % (19-41); Metamyelocyte 2 % (0-1); Monocyte 8 % (0-10); Myelocyte 1 % (0-0); Neutrophil-Band 2 % (0-5); Neutrophil-Segmented 62 % (47-70); Platelet Estimate ADEQUATE (ADEQ)
[2020-12-26 06:03] LABS: Red Cell Morphology NORM C+C NORMAL (NORM C&C)
[2020-12-26 06:04] LABS: Anion Gap 9 (5-15); BUN 5 mg/dL (7-18); Calcium,Total 8.3 mg/dL (8.5-10.1); Chloride 108 mmol/L (98-107); Creatinine, Serum 0.56 mg/dL (0.55-1.02); EST Glomerular Filtration Rate 129 mL/min (>60); Est Glom Filt Rate - Afr Amer 156 mL/min (>60); Estimated Creatinine Clearance 140.95 ml/min; Glucose 95 mg/dL (74-106); Potassium 3.2 mmol/L (3.5-5.1); Sodium Level 140 mmol/L (136-145)
[2020-12-26 08:00] VITALS: BP 104/66; PULSE 71; RESP 18; TEMP 36.3; O2SAT 96
--- NOTE | 2020-12-26 08:30 | PCM.DC.BLA ---
Discharge Summary Date of Admission: 12/18/20 Date of Discharge: 12/26/20 Summary: Patient arrived on 12/18/2020 with previable premature rupture of membranes. Admitted to labor and delivery for observation. Patient began to have flulike symptoms moderate white count no malodorous discharge and no cervical change, no fundal tenderness. Coordination with Lisa AMBROSE to discharge to outpatient setting with direct admit to [facility] on 12/27/2020 coordinated. heart tones remained stable until 12/21/2020 when heart tones were not found here at [facility]. At that time induction of labor for demise occurred. Induction via Cytotec and eventually Hartmann bulb with Pitocin. Patient progressed to 5 cm pushed for multiple hours with no delivery. Patient was brought back to the OR on 12/23/2020 for Hysterostomatomy. Patient was diagnosed with chorioamnionitis started on amp gent Clinda DC'd after 24 hours. In the OR acute blood loss was noted at the time of surgery, Bakri was placed and patient was transfused 5 units of packed red blood cells 1 units of FFP. Patient was transferred from the OR to the ICU here at [facility]. On 12/24/2020 patient was transfused 2 more units of packed red blood cells for a total of 7 units of packed red blood cells, and transfused another unit of FFP making the total 2 units of FFP. Bakri balloon was drained after 24 hours and removed on 12/25/2020. Patient had hypokalemia with IV and p.o. replacement. Was discharged from the ICU on 12/25/2020 to labor and delivery. Patient with stable vitals labs and minimal bleeding discharge home on 12/26/2020 on p.o. potassium. Physical Exam Const alert, oriented x3, no apparent distress, average body habitus and no limitations Eyes PERRL Neck full ROM Resp normal respiratory effort, normal air movement, no retractions and no use of accessory muscles GI normal to inspection, nondistended, normoactive bowel sounds GI Narrative: Uterus below pubic symphysis Extremity normal to inspection, full ROM and normal capillary refill Psych mental status grossly normal, thought process normal, cooperative, affect normal, speech normal and activity/motor behavior normal Meaningful Use Info Meaningful Use Diagnoses (Choose all that apply): None applicable Discharge Plan Admission Admit Date/Time: 12/19/20 08:21 Primary Reason for Your Visit: Previable rupture of membranes Attending Provider: Thomas Anders Primary Care Provider: Uzma Gray Consulting Providers: Kunal Babb ; Ji Lawson ; Sophie Garcia [employer] MACHINIST Instructions Additional Instructions / Restrictions: Regular diet. Weightbearing as tolerated. May shower. No tub baths for 2 weeks. No intercourse for 4 to 6 weeks. Call if fevers of 101, chest pain, shortness of breath, increased bleeding. Follow-up in 1 week Discharge Orders/Prescriptions Prescriptions: No Action albuterol sulfate 1 INHALER inhaler 2 puff Inhalation Q4H PRN PRN (Reason: Cold Symptons) RF: 0 vit,[id number] 1 TABLET tablet 1 tab PO DAILY RF: 0 docusate sodium 100 MG capsule 100 mg PO BID PRN PRN (Reason: Constipation) Qty: 60 RF: 1 Referrals / Follow Up: Uzma Gray MD [Primary Care Provider] - Disposition Disposition (needs filled in before D/C Order can be placed): Home, Self Care
--- NOTE | 2020-12-26 08:38 | PCM.PN.OB ---
Subjective Subjective No overnight complaints. Pain well controlled. No vaginal bleeding. Patient feeling well Objective Data Objective Data Vital Signs: Vital Signs Temp Pulse Resp BP Pulse Ox 97.3 F L 71 18 104/66 96 12/26/20 08:00 12/26/20 08:00 12/26/20 08:00 12/26/20 08:00 12/26/20 08:00 Oxygen Delivery Method Room Air Weight: 257 lb 11.526 oz Body Mass Index (BMI) 35.7 Intake & Output: Intake and Output for Last 24 Hours 12/24/20 12/25/20 12/26/20 23:59 23:59 23:59 Intake Total 3966.75 / 3966.75 1780 / 1780 400 / 400 Output Total 2925 / 3725 2004 Balance 1041.75 / 241.75 -225 / -225 400 / 400 Medical Nutrition Assessment Dietitian: Nutrition Therapy Diagnosis Start: 12/23/20 11:24 Freq: Status: Active Protocol: Document 12/25/20 09:46 AG (Rec: 12/25/20 09:46 AG [id number]) Nutrition Malnutrition Evidence of Malnutrition Exists No Intake Problem Inadequate Oral Intake Etiology - Signs/Symptoms - Status Resolved Problem Recommendation Dietitian Recommendations/Changes Continue regular diet. Nutritionally stable, consult RDN as indicated. Lab / Micro Data Result Diagrams: 12/26/20 05:30 12/26/20 05:30 Labs: Laboratory Results - last 24 hr 12/26/20 05:30: WBC 10.0, RBC 3.65 L, Hgb 10.4 L, Hct 31.5 L, MCV 86.3, MCH 28.5, MCHC 33.0 D, RDW Std Deviation 44.5 H, RDW Coeff of Ryan 14.2, Plt Count 271, MPV 9.4, Neut % (Auto) Not Reportable, Absolute Neuts (auto) 6.4, Absolute Lymphs (auto) 2.10, Neutrophils % (Manual) 62, Band Neutrophils % 2, Lymphocytes % (Manual) 21, Monocytes % (Manual) 8, Eosinophils % (Manual) 4, Metamyelocytes % 2 H, Myelocytes % 1 H, Diff Path Review May foll, Platelet Estimate ADEQUATE, RBC Morphology NORM C+C 12/26/20 05:30: Sodium 140, Potassium 3.2 L, Chloride 108 H, Carbon Dioxide 23.0, Anion Gap 9, BUN 5 L, Creatinine 0.56, Estim Creat Clear Calc 140.95, Est GFR (MDRD) Af Amer 156, Est GFR (MDRD) Non-Af 129, BUN/Creatinine Ratio 9.0 L, Glucose 95, Calcium 8.3 L Micro: Microbiology 12/21/20 00:00 Urine, Catheterized Urine Culture - Final Streptococcus agalactiae (B) Physical Exam Const alert, oriented x3, no apparent distress, average body habitus and healthy appearing HEENT normocephalic and moist oral mucous membranes Head and Scalp: atraumatic Neck full ROM Resp normal respiratory effort, no retractions and no use of accessory muscles GI normal to inspection, nondistended, normoactive bowel sounds GI Narrative: Uterus below the pubic symphysis Extremity normal to inspection, full ROM and no clubbing, cyanosis or edema Psych mental status grossly normal, affect normal, speech normal and activity/motor behavior normal Assessment & Plan (1) Hemorrhagic shock: PLAN: Patient now stable on labor and delivery after acute blood loss anemia status post 7 units packed red blood cells and 2 units of FFP. Labs stable vital stable. Patient asymptomatic. No vaginal bleeding. Mild hypokalemia for p.o. replacement. Okay to discharge home with follow-up in 1 week
[2020-12-26 11:59] LABS: Pathologist Review Reviewed
== END 2020-12-26 09:20 | disposition home or self-care (01) | DRG 768 ==
LOC: WP 12-23 08:36 → ICU 12-23 09:02 → WP 12-25 16:18
PROVIDERS: Anesthesiology; Internal Medicine Critical Care Medicine; Obstetrics & Gynecology; Admitting Provider Obstetrics & Gynecology; PCP Family Medicine; Visit Provider Obstetrics & Gynecology
PROC: 10D17Z9 Manual Extraction of Products of Conception, Retained, Via Natural or Artificial Opening (ICD-10-PCS; principal; 2020-12-23 07:00)
DX: O42.912 Preterm premature rupture of membranes, unspecified as to length of time between rupture and onset of labor, second trimester (principal); Z37.1 Single stillbirth; O41.1220 Chorioamnionitis, second trimester, not applicable or unspecified; R57.8 Other shock; O36.4XX0 Maternal care for intrauterine death, not applicable or unspecified; O72.1 Other immediate postpartum hemorrhage; D62 Acute posthemorrhagic anemia; O34.219 Maternal care for unspecified type scar from previous cesarean delivery; O61.9 Failed induction of labor, unspecified; O99.02 Anemia complicating childbirth; O99.344 Other mental disorders complicating childbirth; Z3A.21 21 weeks gestation of pregnancy; F41.9 Anxiety disorder, unspecified; E87.6 Hypokalemia; O99.284 Endocrine, nutritional and metabolic diseases complicating childbirth; O99.52 Diseases of the respiratory system complicating childbirth; J45.909 Unspecified asthma, uncomplicated
CPT/HCPCS: 36415; 59025; 59050; 76815; 80047; 80048; 80170; 81001; 83605; 84132; 85014; 85018; 85025; 85027; 85610; 85730; 86644; 86850; 86900; 86901; 86920; 87077; 87086; 87088; 87186; 88307; 99218; 99251; J7050; J7120; P9016; P9040; A4216; G0378; G0463; J2405; J3490; P9017

== ENCOUNTER → 2021-02-06 14:46 | Outpatient (CLI) | payer BC, SELFPAY | PROVIDERS: PCP Family Medicine; Visit Provider Obstetrics & Gynecology | DX: R30.0 Dysuria (principal) | CPT/HCPCS: 87086; 87088 ==

== ENCOUNTER → 2021-11-25 | Outpatient (CLI) | payer BC, SELFPAY ==
[2021-11-25 12:20] LABS: Hematocrit 41.7 % (37-47); Hemoglobin 13.4 g/dL (12.0-15.0); Mean Corp Hgb Conc 32.1 g/dL (32-36); Mean Corpuscular Hgb 27.5 pg (27.0-32.0); Mean Corpuscular Volume 85.5 fL (81-99); Mean Platelet Vol. 10.7 fl (6.2-12.0); Platelet Count 266 K/mm3 (150-450); RBC Distribution Width CV 13.5 % (11.6-14.6); Red Blood Count 4.88 M/mm3 (4.2-5.4); White Blood Count 7.6 K/mm3 (4.4-11.0)
[2021-11-25 13:02] LABS: Estradiol 108.3 pg/mL; Follicle Stimulating Hormone 4.8 mIU/mL; T4 Free Direct 1.07 ng/dL (0.76-1.46)
[2021-11-28 12:27] LABS: Anti-Mullerian Hormone,Serum 1.66 ng/mL (.)
== END | disposition home or self-care (01) ==
PROVIDERS: PCP Student in an Organized Health Care Education/Training Program; Visit Provider Obstetrics & Gynecology
DX: N93.9 Abnormal uterine and vaginal bleeding, unspecified (principal)
CPT/HCPCS: 36415; 82670; 83001; 83002; 83516; 84439; 84443; 85027

== ENCOUNTER → 2022-01-20 | Outpatient (CLI) | payer BC, SELFPAY ==
[2022-01-20 10:05] LABS: Progesterone Level 13.58 ng/mL (See Comment)
== END | disposition home or self-care (01) ==
LOC: WOBLAB 09:19
PROVIDERS: PCP Student in an Organized Health Care Education/Training Program; Visit Provider Obstetrics & Gynecology
DX: Z51.81 Encounter for therapeutic drug level monitoring (principal)
CPT/HCPCS: 36415; 84144

== ENCOUNTER → 2022-06-02 | Outpatient (CLI) | payer OTHER, SELFPAY ==
--- NOTE | 2022-06-02 12:51 | US_ITS ---
INDICATION: viability -- STAT -- bleeding EXAMINATION: Ultrasound US OB Transvaginal TECHNIQUE: Transvaginal pelvic ultrasound was performed. Grayscale, spectral waveform, and color flow Doppler evaluation of the adnexa. COMPARISON: October 12, 2020. LMP: [April 14, 2022 which would correlate with 7 weeks 0 days and estimated delivery date January 19, 2023 Beta-hCG: Unknown FINDINGS: UTERUS: Anteverted 9.2 x 4.5. Homogeneous 9.5 mm distal endometrial stripe. Heterogeneous irregular lower uterine segment and likely proximal endocervical canal fluid with tissue or debris, without internal color vascular flow. Measured ill-defined 2.1 x 0.6 x 1.3 cm fluid collection with internal tissue or debris at the internal os of the cervix of uncertain significance. Anechoic nabothian cysts near the external os. RIGHT OVARY: 2.8 x 1.9 x 4.2 cm. Normal parenchymal appearance with preserved vascular flow. LEFT OVARY: Obscured by surrounding soft tissues and bowel. FREE FLUID: None. US/Transvaginal w/Preg US IMPRESSION: Ill-defined heterogeneous fluid collection, likely in the lower uterine segment endometrial canal and endocervical canal which can be seen with failed . A normal early with discordant dating and lower uterine segment fluid and debris is not excluded. Unseen ectopic with pseudogestational sac is also not excluded. Recommend 48-hour trend of hCG and with follow-up ultrasound. Normal right ovary. Obscured left ovary. Electronically Signed: Alf Hyatt MD at 0:33 EST ,
== END | disposition home or self-care (01) ==
LOC: US 12:50
PROVIDERS: PCP Student in an Organized Health Care Education/Training Program; Referring Provider Nurse Practitioner Women's Health; Visit Provider Nurse Practitioner Women's Health
DX: O20.9 Hemorrhage in early pregnancy, unspecified (principal); Z3A.01 Less than 8 weeks gestation of pregnancy
CPT/HCPCS: 76817

== ENCOUNTER → 2022-10-14 | Outpatient (CLI) | payer OTHER, SELFPAY ==
[2022-10-14 13:24] LABS: Absolute Neutrophil Count 6.3 X10^3/uL (2.0-7.7); Basophil# 0.06 X10^3/uL; Basophil% 0.7 % (0-1); Eosinophil# 0.11 X10^3/uL; Eosinophils% 1.2 % (0-5); Hematocrit 38.3 % (37-47); Hemoglobin 12.6 g/dL (12.0-15.0); Lymphocyte % 21.3 % (19-41); Mean Corp Hgb Conc 32.9 g/dL (32-36); Mean Corpuscular Volume 85.1 fL (81-99); Mean Platelet Vol. 10.7 fl (6.2-12.0); Monocyte% 5.6 % (0-10); NRBC Flagged by Analyzer 0 % (0-5); Neutrophil # 6.33 X10^3/uL (2.7-7.7); Neutrophil % 70.9 % (47-70); Platelet Count 274 K/mm3 (150-450); RBC Distribution Width CV 13.2 % (11.6-14.6); White Blood Count 8.9 K/mm3 (4.4-11.0)
[2022-10-14 14:13] LABS: HIV - WCH Non-Reactive (Nonreactive); Hepatitis B Surface Antigen Non-Reactive (Nonreactive); Hepatitis C Antibody Non-Reactive (Nonreactive); Rubella IgG Equiv (Nonreactive); Syphilis Antibodies Non-reactive
[2022-10-16 05:07] LABS: V-Zoster IgG (Immunity) 2752 index (Immune >165)
[2022-10-22 13:08] LABS: HPV APTIMA, High Risk Negative (Negative)
== END | disposition home or self-care (01) ==
PROVIDERS: PCP Student in an Organized Health Care Education/Training Program; Visit Provider Obstetrics & Gynecology
DX: N95.0 Postmenopausal bleeding (principal)
CPT/HCPCS: 36415; 85025; 86703; 86762; 86780; 86787; 86803; 87086; 87088; 87340; 87624; 88175; G0145

== ENCOUNTER → 2022-11-11 | Outpatient (CLI) | payer OTHER, SELFPAY ==
[2022-11-11 11:40] LABS: Glucose Challenge Gest 1H 50g 127 mg/dL (70-140)
== END | disposition home or self-care (01) ==
LOC: WOBLAB 09:35
PROVIDERS: PCP Student in an Organized Health Care Education/Training Program; Visit Provider Obstetrics & Gynecology
DX: Z34.81 Encounter for supervision of other normal pregnancy, first trimester (principal)
CPT/HCPCS: 36415; 82950

== ENCOUNTER → 2022-12-11 | Outpatient (CLI) | payer OTHER, SELFPAY | END | disposition home or self-care (01) | LOC: LABSPEC 16:20 | PROVIDERS: PCP Student in an Organized Health Care Education/Training Program; Visit Provider Student in an Organized Health Care Education/Training Program | DX: N39.0 Urinary tract infection, site not specified (principal) | CPT/HCPCS: 87086; 87088 ==

== ENCOUNTER → 2022-12-16 | Outpatient (CLI) | payer OTHER, SELFPAY ==
[2022-12-21 16:09] LABS: AFP MoM Value 1.07 (.); AFP Value-EIA 29.6 ng/mL (.); Comment Report (.); DIA MoM Value 1.03 (.); DIA Value-EIA 117.88 pg/mL (.); DSR (By Age) 52 (.); DSR (Second Trimester) 700 (.); Gestat. Age Based On Ultrasound (.); Gestational Age 16.6 WEEKS (.); Insulin Dep Diabetes No (.); Maternal Age At EDD 41.9 yr (.); hCG MoM 0.63 (.); hCG Value 16935 mIU/mL (.)
== END | disposition home or self-care (01) ==
PROVIDERS: PCP Student in an Organized Health Care Education/Training Program; Referring Provider Obstetrics & Gynecology; Visit Provider Obstetrics & Gynecology
DX: Z34.90 Encounter for supervision of normal pregnancy, unspecified, unspecified trimester (principal)
CPT/HCPCS: 36415; 82105; 82677; 84702

== ENCOUNTER → 2023-03-10 | Outpatient (CLI) | payer OTHER, SELFPAY ==
[2023-03-10 09:14] LABS: Absolute Lymphocyte Count 1.44 X10^3/uL (0.83-4.51); Absolute Neutrophil Count 6.4 X10^3/uL (2.0-7.7); Basophil# 0.05 X10^3/uL; Basophil% 0.6 % (0-1); Eosinophil# 0.17 X10^3/uL; Hematocrit 35.1 % (37-47); Hemoglobin 10.9 g/dL (12.0-15.0); Lymphocyte # 1.44 X10^3/ul (0.83-4.51); Lymphocyte % 16.6 % (19-41); Mean Corp Hgb Conc 31.1 g/dL (32-36); Mean Corpuscular Hgb 27.2 pg (27.0-32.0); Mean Corpuscular Volume 87.5 fL (81-99); Mean Platelet Vol. 10.1 fl (6.2-12.0); Monocyte# 0.55 X10^3/uL; Monocyte% 6.3 % (0-10); NRBC Flagged by Analyzer 0 % (0-5); Neutrophil # 6.37 X10^3/uL (2.7-7.7); Neutrophil % 73.5 % (47-70); Platelet Count 207 K/mm3 (150-450); RBC Distribution Width CV 14.6 % (11.6-14.6); RBC Distribution Width SD 46.9 fl (35.1-43.9); Red Blood Count 4.01 M/mm3 (4.2-5.4); White Blood Count 8.7 K/mm3 (4.4-11.0)
[2023-03-10 09:41] LABS: Glucose Challenge Gest 1H 50g 142 mg/dL (70-140)
[2023-03-10 10:11] LABS: HIV - WCH Non-Reactive (Nonreactive); Syphilis Antibodies Non-reactive
== END | disposition home or self-care (01) ==
PROVIDERS: PCP Student in an Organized Health Care Education/Training Program; Referring Provider Obstetrics & Gynecology; Visit Provider Obstetrics & Gynecology
DX: O09.529 Supervision of elderly multigravida, unspecified trimester (principal); Z3A.00 Weeks of gestation of pregnancy not specified
CPT/HCPCS: 36415; 82950; 85025; 86703; 86780

== ENCOUNTER → 2023-03-16 | Outpatient (CLI) | payer OTHER, SELFPAY ==
[2023-03-16 08:27] LABS: Glucose GTT-Gestation. Fasting 97 mg/dL (<105)
[2023-03-16 08:51] LABS: Glucose GTT-Gestational 1 Hr 200 mg/dL (<190)
[2023-03-16 10:18] LABS: Glucose GTT-Gestational 2 Hr 144 mg/dL (<165)
[2023-03-16 11:17] LABS: Glucose GTT-Gestational 3 Hr 60 L (<145)
== END | disposition home or self-care (01) ==
LOC: LAB 06:49
PROVIDERS: PCP Student in an Organized Health Care Education/Training Program; Referring Provider Obstetrics & Gynecology; Visit Provider Obstetrics & Gynecology
DX: Z13.1 Encounter for screening for diabetes mellitus (principal)
CPT/HCPCS: 36415; 82951; 82952